=== PATIENT | female | born 1955 | race Caucasian/White ===

== ENCOUNTER 2018-01-30 07:04 | Day surgery (SDC) | payer OTHER ==
[~2018-01-30 07:04] MED LIST: Acetaminophen TAB* 325 MG PO PRN; Buffered Lidocaine 0.9% SYRIN* 5 ML/SYR SYRINGE INTRADERM ONE
[2018-01-30] MEDS ORDERED: acetaZOLAMIDE TAB* 250 MG ONE (08:01)
[2018-01-30] MEDS ORDERED: Phenylephrine 2.5% OPTH.SOL* 2 ML BTL ONE (08:02)
[2018-01-30] MEDS ORDERED: Lidocaine 2% EPI 1:200000 MPF*10-20 ML VIAL ONE (08:02)
[2018-01-30] MEDS ORDERED: Cyclopentolate 1% OPTH.SOL* 2 ML BTL ONE (08:02)
[2018-01-30] MEDS ORDERED: Lidocaine 1% MPF* 2 ML VIAL ONE (08:02)
[2018-01-30] MEDS ORDERED: Proparacaine 0.5% OPHTH.SOL* 15 ML BTL ONE (08:02)
[2018-01-30] MEDS ORDERED: Neomycin/Polymy/Dex OPTH.SUSP* MAXITROL 0.1% 5 ML ONE (08:02)
[2018-01-30] MEDS ORDERED: Ketorolac 0.5% OPHTH (NF) 0.5 % 5 ML BTL ONE (08:02)
[2018-01-30] MEDS ORDERED: Povidone Iodine 5% OPTH* 30 ML BTL ONE (08:02)
[2018-01-30] MEDS ORDERED: fentaNYL* 50 MCG/ML 2 ML VIAL (100 MCG VIAL) ONE (08:13)
[2018-01-30] MEDS ORDERED: Midazolam* 1 MG/ML 2 ML VIAL (2 MG) ONE ×3 (08:13→09:04)
[2018-01-30 09:18] VITALS: BP 111/87
--- NOTE | 2018-01-30 11:25 | OP ---
OPERATIVE NOTE: DATE OF OPERATION: 01/30/18 - [facility] DATE OF : 53 SURGEON: Panfilo Mccann M.D. PREOPERATIVE DIAGNOSIS: Cataract, left eye. POSTOPERATIVE DIAGNOSIS: Cataract, left eye. OPERATIVE PROCEDURE: Extracapsular cataract extraction with IOL implant left eye. PROCEDURE: The patient was brought to the operating room after being given 1/2 % Alcaine with epinephrine drops in the preoperative area. The eye was prepped and draped in the usual sterile fashion. Sterile drape and eyelid speculum were placed. Again, topical 1/2% Alcaine with epinephrine was given. A paracentesis incision was made at the 3 o'clock position with the No.75 blade. Clear cornea incision 2.2 x 2.2-mm was created at the 6 o'clock position starting at the anterior limbus using the 2.2-mm keratome. The anterior chamber was irrigated with 0.4 mL of 1% non-preservative intracameral lidocaine and filled with DisCoVisc. A capsulorrhexis was completed using the cystotome and the Utrata forceps. Hydrodissection was performed with balanced salt solution. The lens nucleus was removed with the Phacoemulsification handpiece without incident. Cortex was removed with the irrigation-aspiration handpiece. The capsular bag was re-inflated using DisCoVisc and an [id number] 22.0 implant was inserted with the shooter. The irrigation-aspiration handpiece was used to remove all residual DisCoVisc. The eye was refilled with balanced salt solution and the wound checked and found to be watertight. Topical Maxitrol drops were given. [id number]/[facility] #: [id number] [facility] CENTERAlyson
== END 2018-01-30 09:25 | disposition home or self-care (01) ==
LOC: OREAST 07:04
PROVIDERS: ATTEND Specialist
DX: H25.812 Combined forms of age-related cataract, left eye (principal); A69.23 Arthritis due to Lyme disease; K58.9 Irritable bowel syndrome, unspecified; F32.9 Major depressive disorder, single episode, unspecified
CPT/HCPCS: A9270-GY; J2250; J3010; V2632

== ENCOUNTER 2018-02-06 08:10 | Day surgery (SDC) | payer OTHER ==
[2018-02-06] MEDS ORDERED: Proparacaine 0.5% OPHTH.SOL* 15 ML BTL ONE (09:08)
[2018-02-06] MEDS ORDERED: Lidocaine 1% MPF* 2 ML VIAL ONE (09:08)
[2018-02-06] MEDS ORDERED: Povidone Iodine 5% OPTH* 30 ML BTL ONE (09:08)
[2018-02-06] MEDS ORDERED: Cyclopentolate 1% OPTH.SOL* 2 ML BTL ONE (09:08)
[2018-02-06] MEDS ORDERED: Lidocaine 2% EPI 1:200000 MPF*10-20 ML VIAL ONE (09:08)
[2018-02-06] MEDS ORDERED: Ketorolac 0.5% OPHTH (NF) 0.5 % 5 ML BTL ONE (09:08)
[2018-02-06] MEDS ORDERED: Phenylephrine 2.5% OPTH.SOL* 2 ML BTL ONE (09:08)
[2018-02-06] MEDS ORDERED: Neomycin/Polymy/Dex OPTH.SUSP* MAXITROL 0.1% 5 ML ONE (09:08)
[2018-02-06] MEDS ORDERED: acetaZOLAMIDE TAB* 250 MG ONE (09:08)
[2018-02-06] MEDS ORDERED: Midazolam* 1 MG/ML 2 ML VIAL (2 MG) ONE (10:26)
--- NOTE | 2018-02-06 11:26 | OP ---
DATE OF OPERATION: 02/06/2018. DATE OF : 1955. SURGEON: Panfilo Mccann M.D. PREOPERATIVE DIAGNOSIS: Cataract right eye. POSTOPERATIVE DIAGNOSIS: Cataract right eye. OPERATIVE PROCEDURE: Extracapsular cataract extraction with intraocular lens implant right eye. PROCEDURE: The patient was brought to the operating room after being given 1/2% Alcaine with epineph rine drops in the preoperative area. The eye was prepped and draped in the usual sterile fashion. S terile drape and eyelid speculum were placed. Again, topical 1/2% Alcaine with epinephrine was given . A paracentesis incision was made at the 9 o'clock position with the No.75 blade. Clear cornea inc ision 2.2 x 2.2-mm was created at the 12 o'clock position starting at the anterior limbus using the 2 .2-mm keratome. The anterior chamber was irrigated with 0.4 mL of 1% non-preservative intracameral l idocaine and filled with DisCoVisc. A capsulorrhexis was completed using the cystotome and the Utrat a forceps. Hydrodissection was performed with balanced salt solution. The lens nucleus was removed w ith the Phacoemulsification handpiece without incident. Cortex was removed with the irrigation-aspir ation handpiece. The capsular bag was re-inflated using DisCoVisc and an [id number] 22 implant was inser brenda with the shooter. The irrigation-aspiration handpiece was used to remove all residual DisCoVisc. The eye was refilled with balanced salt solution and the wound checked and found to be watertight. Topical Maxitrol drops were given. [id number]/[facility] #: [id number]
[2018-02-06 11:32] VITALS: BP 121/80
== END 2018-02-06 11:20 | disposition home or self-care (01) ==
LOC: OREAST 08:10
PROVIDERS: ATTEND Specialist
DX: H25.811 Combined forms of age-related cataract, right eye (principal); A69.20 Lyme disease, unspecified
CPT/HCPCS: A9270-GY; J2250; V2632

== ENCOUNTER 2019-11-02 12:37 | Emergency (ER) | payer MEDICARE, OTHER ==
--- OUTSIDE RECORDS SUMMARY | 2019-11-02 12:43 | XMS REPORT ---
:1955 Author Organization [facility] Care Team Providers Name Role Phone Unavailable Unavailable Unavailable Problems Condition Condition Condition Status Onset Resolution Last Treating Comments Name Details Category Date Date Treatment Clinician Date Aftercare Aftercare Diagnosis Active 2018-10 Fabian following following 11-16 Katt joint joint [id number] replacement replacement surgery surgery Presence of Presence of Diagnosis Active 2018-10 Fabian right right 2- Katt artificial artificial [id number] knee joint knee joint Major Major Diagnosis Active 2018-10 Fabian depressive depressive 2- Katt disorder, disorder, [id number] single single episode, episode, unspecified unspecified Obstructive Obstructive Diagnosis Active 2018-10 Fabian sleep apnea sleep apnea 2- Katt (adult) (adult) [id number] (pediatric) (pediatric) Unspecified Unspecified Diagnosis Active 2018-10 Faiban osteoarthri osteoarthri 2- Katt tis, tis, [id number] unspecified unspecified site site Gastro-esop Gastro-esop Diagnosis Active 2018-10 Fabian hageal hageal 2- Katt reflux reflux [id number] disease disease without without esophagitis esophagitis Lyme Lyme Diagnosis Active Fabian disease, disease, Kobziewicz unspecified unspecified [id number] Other Other Diagnosis Active Fabian specified specified Katt behavioral behavioral [id number] and and emotional emotional disorders disorders with onset with onset usually usually occurring occurring in in childhood childhood and and adolescence adolescence Calculus of Calculus of Diagnosis Active Fabian gallbladder gallbladder Kobziewicz without without [id number] cholecystit cholecystit is without is without obstruction obstruction 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) (current) Katt use of use of [id number] aspirin aspirin Pain frequent Pain Mgmt Active 2018-10 Shadia pain 11-16 Paloma 10:25: [id number] 00 Respiratory dyspnea Respirator Active 2018-10 Shadia present y 11-16 [place] 10:25: [id number] 00 Respiratory CPAP Respirator Active 2018-10 Shadia treatments y 11-16 Paloma in home 10:25: [id number] 00 Endo/Earl anti-coagul Endo/Earl Active 2018-10 Shadia ation 11-16 Paloma therapy 10:25: [id number] 00 Integument surgical Integument Active 2018-10 Shadia wound 11-16 Paloma present 10:25: [id number] 00 Integument skin Integument Active 2018-10 Shadia integrity 11-16 Paloma risk 10:25: [id number] 00 Nutrition nutritional Nutrition Active 2018-10 Shadia restriction 11-16 Paloma s 10:25: [id number] 00 Elimination urinary Eliminatio Active 2018-10 Shadia incontinenc n 11-16 Paloma e 10:25: [id number] 00 Neuro confusion Neuro/Emot Active 2018-10 Shadia present ion 11-16 [place]oma 10:25: [id number] 00 Activity ADL Activity Active 2018-10 Shadia assistance 11-16 [place] required 10:25: [id number] 00 Activity self-care Activity Active 2018-10 Shadia deficit 11-16 [place] 10:25: [id number] 00 Safety structural Safety Active 2018-10 Shadia barriers 11-16 Paloma present 10:25: [id number] 00 Safety fall risk Safety Active 2018-10 Shadia factor 11-16 Paloma present 10:25: [id number] 00 Safety risk for Safety Active 2018-10 Shadia hospitaliza 11-16 Paloma tion 10:25: [id number] 00 Medication oral med Meds Active 2018-10 Shadia assistance 11-16 [place]oma required 10:25: [id number] 00 Medication knowledge/s Meds Active 2018-10 Shadia kill 11-16 Paloma deficit: pt 10:25: [id number] 00 Musculoskel transfer Musculoske Active 2018-10 Shadia etal assistance letal 11-16 Paloma required 10:25: [id number] 00 Musculoskel requires Musculoske Active 2018-10 Shadia etal human letal 11-16 [place]oma assist to 10:25: [id number] leave home 00 Safety can be left Safety Active 2018-10 Fabian alone for 11-16 Katt only short 11:45: [id number] periods 00 ROM ROM PT: ROM Active 2018-10 Fabian deficit: LE 11-16 Kobziewicz 11:45: [id number] 00 ROM knowledge/s PT: ROM Active 2018-10 Fabian kill 11-16 Kobziewicz deficit LE: 11:45: [id number] pt 00 Strength/To knowledge/s PT: Active 2018-10 Fabian ne/Motor kill Strength 11-16 Kobziewicz Control deficit LE: 11:45: [id number] pt 00 Bed mobility/tr PT/OT: Bed Active 2018-10 Fabian Mobility/Tr ansfer Mobility/T 11-16 Kobziewicz ansfer device ransfer 11:45: [id number] present 00 Bed transfer PT/OT: Bed Active 2018-10 Fabian Mobility/Tr deficit: Mobility/T 11-16 Kobziewicz ansfer vehicle ransfer 11:45: [id number] 00 Bed knowledge/s PT/OT: Bed Active 2018-10 Fabian Mobility/Tr kill Mobility/T 11-16 Kobziewicz ansfer deficit: pt ransfer 11:45: [id number] 00 Balance/End 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/legal 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 PT/OT: Active 2018-10 Fabian urance rdination Balance/En 11-16 Kobziewicz deficit durance 11:45: [id number] 00 OT: Self self-care OT: Active 2018-10 Fabian Care deficit Self-Care 11-16 Kobziewicz 11:45: [id number] 00 OT: Self knowledge/s OT: Active 2018-10 Fabian Care kill Self-Care 11-16 Kobziewicz deficit: pt 11:45: [id number] 00 Gait/Locomo stair PT/OT: Active 2018-10 Fabian tion management Gait/Locom 11-16 Kobziewicz problems req otion 11:45: [id number] 00 Gait/Locomo gait PT/OT: Active 2018-10 Fabian tion assistive Gait/Locom 11-16 Kobziewicz problems device otion 11:45: [id number] present 00 Gait/Locomo knowledge/s PT/OT: Active 2018-10 Fabian tion kill Gait/Locom 11-16 Kobziewicz problems deficit: pt otion 11:45: [id number] 00 Gait/Locomo gait PT/OT: Active 2018-10 Fabian tion deficit Gait/Locom 11-16 Kobziewicz problems otion 11:45: [id number] 00 Allergies, Adverse Reactions, Alerts Allergy Name Allergy Status Severity Reaction(s) Onset Inactive Treating Comments Type Date Date Clinician hydrocodone Base Active Unknown Reaction Tasneem Beam Ingredient Unknown 06-13 Dilaudid Medication Active Unknown Reaction Tasneem Beam Name ID Unknown 06-13 egg Base Active Unknown Reaction Tasneem Beam Ingredient Unknown 06-13 gluten Base Active Unknown Reaction Tasneem Beam Ingredient Unknown 06-13 milk Base Active Unknown Reaction Tasneem Beam Ingredient Unknown 06-13 Medications Ordered Filled Start Stop Current Ordering Indication Dosage Frequency Signature Comments Components Medication Medication Date Date Medication? Clinician (SIG) Name Name Aspirin Low Aspirin Low 2018-10 Yes Ginnetti Unknown Unknown Dose 81 mg Dose 81 mg 11-16 Jose GIVENS tablet,araceli tablet,araceli yed release yed release senna 8.6 senna 8.6 2018-10 Yes Ginnetti Unknown Unknown mg tablet mg tablet 11-16 Jose GIVENS Tylenol Tylenol 2018-10 Yes Ginnetti Unknown Unknown Extra Extra 2 Jose GIVENS Strength Strength 500 mg 500 mg tablet tablet docusate docusate 2018-10 Yes Ginnetti Unknown Unknown sodium 100 sodium 100 2 Jose GIVENS mg capsule mg capsule oxyCODONE 5 oxyCODONE 5 2018-10 Yes Ginnetti Unknown Unknown mg tablet mg tablet 11-16 Jose GIVENS morphine 15 morphine 15 2018-10 Yes Ginnetti Unknown Unknown mg tablet, mg tablet, 11-16 Jose GIVENS crush crush resistant, resistant, extended extended release release meloxicam meloxicam 2018-10- Yes Ginnetti Unknown Unknown 7.5 mg 7.5 mg 11-16 Jose GIVENS tablet tablet gabapentin gabapentin 2018-10- Yes Ginnetti Unknown Unknown 300 mg 300 mg 11-16 Jose GIVENS capsule capsule Vital Signs Vital Name Observation Time Observation Value Comments SYSTOLIC mm[Hg] 2019-09-22 18:09:23 110 mm[Hg] mm[Hg] Method: Sit SYSTOLIC mm[Hg] 2019-09-15 18:09:16 102 mm[Hg] mm[Hg] Method: Stand DIASTOLIC mm[Hg] 2019-09-22 18:09:23 60 mm[Hg] mm[Hg] Method: Sit DIASTOLIC mm[Hg] 2019-09-15 18:09:16 64 mm[Hg] mm[Hg] Method: Stand PULSE 2019-09-22 18:09:23 86 /min /min RESP RATE 2019-09-15 18:09:16 14 /min /min TEMP 2019-09-15 18:09:16 98.7 [degF] Procedures This patient has no known procedures. Results This patient has no known results.
--- OUTSIDE RECORDS SUMMARY | 2019-11-02 12:43 | XMS REPORT ---
:1955 Author Organization [facility] Care Team Providers Name Role Phone Unavailable Unavailable Unavailable Problems Condition Condition Condition Status Onset Resolution Last Treating Comments Name Details Category Date Date Treatment Clinician Date Aftercare Aftercare Diagnosis Active 2018-10 Fabian following following 11-16 Katt joint joint [id number] replacement replacement surgery surgery Presence of Presence of Diagnosis Active 2018-10 Fabian right right 2- Katt artificial artificial [id number] knee joint knee joint Major Major Diagnosis Active 2018-10 Fabian depressive depressive 2- Katt disorder, disorder, [id number] single single episode, episode, unspecified unspecified Obstructive Obstructive Diagnosis Active 2018-10 Fabian sleep apnea sleep apnea 2-05 Katt (adult) (adult) [id number] (pediatric) (pediatric) Unspecified Unspecified Diagnosis Active 2018-10 Fabian osteoarthri osteoarthri 2-05 Katt tis, tis, [id number] unspecified unspecified site site Gastro-esop Gastro-esop Diagnosis Active 2018-10 Fabian hageal hageal 2-05 Katt reflux reflux [id number] disease disease without without esophagitis esophagitis Lyme Lyme Diagnosis Active Fabian disease, disease, Yoditziewicz unspecified unspecified [id number] Other Other Diagnosis Active Fabian specified specified Katt behavioral behavioral [id number] and and emotional emotional disorders disorders with onset with onset usually usually occurring occurring in in childhood childhood and and adolescence adolescence Calculus of Calculus of Diagnosis Active Fabian gallbladder gallbladder Kobziewicz without without [id number] cholecystit cholecystit is without is without obstruction obstruction 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) (current) Katt use of use of [id number] aspirin aspirin Pain frequent Pain Mgmt Resolve 2018-102019-10-06 Shadai pain d 11-16 11:15:00 Rosa M 10:25: [id number] 00 Respiratory dyspnea Respirator Resolve 2018-102019-10-06 Shadia present y d 11-16 11:15:00 Rosa M 10:25: [id number] 00 Respiratory CPAP Respirator Resolve 2018-102019-10-06 Shadia treatments y d 11-16 11:15:00 Rosa M in home 10:25: [id number] 00 Endo/Earl anti-coagul Endo/Earl Resolve 2018-102019-10-06 Shadia ation d 11-16 11:15:00 [place] therapy 10:25: [id number] 00 Integument surgical Integument Resolve 2018-102019-10-06 Shadia wound d 11-16 11:15:00 [place] present 10:25: [id number] 00 Integument skin Integument Resolve 2018-102019-10-06 Shadia integrity d 11-16 11:15:00 Rosa M risk 10:25: [id number] 00 Nutrition nutritional Nutrition Resolve 2018-102019-10-06 Shadia restriction d 11-16 11:15:00 Rosa M s 10:25: [id number] 00 Elimination urinary Eliminatio Resolve 2018-102019-10-06 Shadia incontinenc n d 11-16 11:15:00 [place] e 10:25: [id number] 00 Neuro confusion Neuro/Emot Resolve 2018-102019-10-06 Shadia present ion d 11-16 11:15:00 [place] 10:25: [id number] 00 Activity ADL Activity Resolve 2018-102019-10-06 Shadia assistance d 11-16 11:15:00 [place] required 10:25: [id number] 00 Activity self-care Activity Resolve 2018-102019-10-06 Shadia deficit d 11-16 11:15:00 [place] 10:25: [id number] 00 Safety structural Safety Resolve 2018-102019-10-06 Shadia barriers d 11-16 11:15:00 [place] present 10:25: [id number] 00 Safety fall risk Safety Resolve 2018-102019-10-06 Shadia factor d 11-16 11:15:00 Rosa M present 10:25: [id number] 00 Safety risk for Safety Resolve 2018-102019-10-06 Shadia hospitaliza d 11-16 11:15:00 [place] tion 10:25: [id number] 00 Medication oral med Meds Resolve 2018-102019-10-06 Shadia assistance d 11-16 11:15:00 [place] required 10:25: [id number] 00 Medication knowledge/s Meds Resolve 2018-102019-10-06 Shadia kill d 11-16 11:15:00 Rosa M deficit: pt 10:25: [id number] 00 Musculoskel transfer Musculoske Resolve 2018-102019-10-06 Shadia etal assistance letal d 11-16 11:15:00 [place] required 10:25: [id number] 00 Musculoskel requires Musculoske Resolve 2018-102019-10-06 Shadia etal human letal d 11-16 11:15:00 [place] assist to 10:25: [id number] leave home 00 Safety can be left Safety Resolve 2018-102019-10-06 Fabian alone for d 11-16 11:15:00 Katt clark short 11:45: [id number] periods 00 ROM ROM PT: ROM Resolve 2018-102019-10-06 Fabian deficit: LE d 11-16 11:15:00 Katt 11:45: [id number] 00 ROM knowledge/s PT: ROM Resolve 2018-102019-10-06 Fabian kill d 11-16 11:15:00 Katt deficit LE: 11:45: [id number] pt 00 Strength/To knowledge/s PT: Resolve 2018-102019-10-06 Fabian ne/Motor kill Strength d 11-16 11:15:00 Katt Control deficit LE: 11:45: [id number] pt 00 Bed mobility/tr PT/OT: Bed Resolve 2018-102019-10-06 Fabian Mobility/Tr ansfer Mobility/T d 11-16 11:15:00 Katt davis device ransfer 11:45: [id number] present 00 Bed transfer PT/OT: Bed Resolve 2018-102019-10-06 Fabian Mobility/Tr deficit: Mobility/T d 11-16 11:15:00 Katt davis vehicle ransfer 11:45: [id number] 00 Bed knowledge/s PT/OT: Bed Resolve 2018-102019-10-06 Fabian Mobility/Tr kill Mobility/T d 11-16 11:15:00 Katt davis deficit: pt ransfer 11:45: [id number] 00 Balance/End balance/patient placement coordinator PT/OT: Resolve 2018-102019-10-06 Fabian eliance rdination Balance/En d 11-16 11:15:00 Kobziewicz deficit durance 11:45: [id number] 00 OT: Self self-care OT: Resolve 2018-102019-10-06 Fabian Care deficit Self-Care d 11-16 11:15:00 Kobziewicz 11:45: [id number] 00 OT: Self knowledge/s OT: Resolve 2018-102019-10-06 Fabian Care kill Self-Care d 11-16 11:15:00 Kobziewicz deficit: pt 11:45: [id number] 00 Gait/Locomo stair PT/OT: Resolve 2018-102019-10-06 Fabian tion management Gait/Locom d 11-16 11:15:00 Kobziewicz problems req otion 11:45: [id number] 00 Gait/Locomo gait PT/OT: Resolve 2018-102019-10-06 Fabian tion assistive Gait/Locom d 11-16 11:15:00 Kobziewicz problems device otion 11:45: [id number] present 00 Gait/Locomo knowledge/s PT/OT: Resolve 2018-102019-10-06 Fabian tion kill Gait/Locom d 11-16 11:15:00 Kobziewicz problems deficit: pt otion 11:45: [id number] 00 Gait/Locomo gait PT/OT: Resolve 2018-102019-10-06 Fabian tion deficit Gait/Locom d 11-16 11:15:00 Kobziewicz problems otion 11:45: [id number] 00 Allergies, Adverse Reactions, Alerts Allergy Name [...] (SIG) Name Name Aspirin Low Aspirin Low 2018-10- Yes Serg Unknown Unknown Dose 81 mg Dose 81 mg 11-16 Jose GIVENS tablet,araceli tablet,araceli yed release yed release senna 8.6 senna 8.6 2018-10- Yes Serg Unknown Unknown mg tablet mg tablet 11-16 Jose GIVENS Tylenol Tylenol 2018-10- Yes Serg Unknown Unknown Extra Extra 11-16 Jose GIVENS Strength Strength 500 mg 500 mg tablet tablet docusate docusate 2018-10- Yes Serg Unknown Unknown sodium 100 sodium 100 11-16 Jose GIVENS mg capsule mg capsule oxyCODONE 5 oxyCODONE 5 2018-10- Yes Marnilesviamadeline Unknown Unknown mg tablet mg tablet 11-16 Jose GIVENS morphine 15 morphine 15 2018-10- Yes Serg Unknown Unknown mg tablet, mg tablet, 11-16 Jose GIVENS crush crush resistant, resistant, extended extended release release meloxicam meloxicam 2018-10- Yes Serg Unknown Unknown 7.5 mg 7.5 mg 11-16 Jose GIVENS tablet tablet gabapentin gabapentin 2018-10- Yes Serg Unknown Unknown 300 mg 300 mg 11-16 Jose GIVENS capsule capsule Vital Signs Vital Name Observation Time Observation Value Comments SYSTOLIC mm[Hg] 2019-10-06 18:09:37 110 mm[Hg] mm[Hg] Method: Sit SYSTOLIC mm[Hg] 2019-09-15 18:09:16 102 mm[Hg] mm[Hg] Method: Stand DIASTOLIC mm[Hg] 2019-10-06 18:09:37 62 mm[Hg] mm[Hg] Method: Sit DIASTOLIC mm[Hg] 2019-09-15 18:09:16 64 mm[Hg] mm[Hg] Method: Stand PULSE 2019-10-06 18:09:37 88 /min /min RESP RATE 2019-10-06 18:09:37 15 /min /min TEMP 2019-10-06 18:09:37 98.7 [degF] Procedures This patient has no known procedures. Results This patient has no known results.
--- OUTSIDE RECORDS SUMMARY | 2019-11-02 12:43 | XMS REPORT ---
:1955 Author Organization [facility] Care Team Providers Name Role Phone Unavailable Unavailable Unavailable Problems Condition Condition Condition Status Onset Resolution Last Treating Comments Name Details Category Date Date Treatment Clinician Date Aftercare Aftercare Diagnosis Active 2018-10 Fabian following following 11-16 Katt joint joint [id number] replacement replacement surgery surgery Presence of Presence of Diagnosis Active 2018-10 Fabian right right 2- Katt artificial artificial [id number] knee joint knee joint Major Major Diagnosis Active 2018-10 Fabian depressive depressive 2- Katt disorder, disorder, [id number] single single episode, episode, unspecified unspecified Obstructive Obstructive Diagnosis Active 2018-10 Fabian sleep apnea sleep apnea 2- Katt (adult) (adult) [id number] (pediatric) (pediatric) Unspecified Unspecified Diagnosis Active 2018-10 Fabian osteoarthri osteoarthri 2- Katt tis, tis, [id number] unspecified unspecified site site Gastro-esop Gastro-esop Diagnosis Active 2018-10 Fabian hageal hageal 2- Katt reflux reflux [id number] disease disease without without esophagitis esophagitis Lyme Lyme Diagnosis Active Fabian disease, disease, Kobziewicz unspecified unspecified [id number] Other Other Diagnosis Active Fabian specified specified Katt behavioral behavioral [id number] and and emotional emotional disorders disorders with onset with onset usually usually occurring occurring in in childhood childhood and and adolescence adolescence Calculus of Calculus of Diagnosis Active Fabian gallbladder gallbladder Kobziewicz without without [id number] cholecystit cholecystit is without is without obstruction obstruction 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 Diagnosis Active Fabian (current) (current) Katt use of use of [id number] aspirin aspirin Pain frequent Pain Mgmt Active 2018-10 Shadia pain 11-16 [place] 10:25: [id number] 00 Respiratory dyspnea Respirator Active 2018-10 Shadia present y 11-16 [place] 10:25: [id number] 00 Respiratory CPAP Respirator Active 2018-10 Shadia treatments y 11-16 [place] in home 10:25: [id number] 00 Endo/Earl anti-coagul Endo/Earl Active 2018-10 Shadia ation 11-16 [place] therapy 10:25: [id number] 00 Integument surgical Integument Active 2018-10 Shadia wound 11-16 [place] present 10:25: [id number] 00 Integument skin Integument Active 2018-10 Shadia integrity 11-16 [place] risk 10:25: [id number] 00 Nutrition nutritional Nutrition Active 2018-10 Shadia restriction 11-16 [place] s 10:25: [id number] 00 Elimination urinary Eliminatio Active 2018-10 Shadia incontinenc n 11-16 [place] e 10:25: [id number] 00 Neuro confusion Neuro/Emot Active 2018-10 Shadia present ion 11-16 [place] 10:25: [id number] 00 Activity ADL Activity Active 2018-10 Shadia assistance 11-16 [place] required 10:25: [id number] 00 Activity self-care Activity Active 2018-10 Shadia deficit 11-16 [place] 10:25: [id number] 00 Safety structural Safety Active 2018-10 Shadia barriers 11-16 [place] present 10:25: [id number] 00 Safety fall risk Safety Active 2018-10 Shadia factor 11-16 [place] present 10:25: [id number] 00 Safety risk for Safety Active 2018-10 Shadia hospitaliza 11-16 [place] tion 10:25: [id number] 00 Medication oral med Meds Active 2018-10 Shadia assistance 11-16 [place] required 10:25: [id number] 00 Medication knowledge/s Meds Active 2018-10 Shadia kill 11-16 [place] deficit: pt 10:25: [id number] 00 Musculoskel transfer Musculoske Active 2018-10 Shadia etal assistance letal 11-16 [place] required 10:25: [id number] 00 Musculoskel requires Musculoske Active 2018-10 Shadia etal human letal 11-16 [place] assist to 10:25: [id number] leave home 00 Safety can be left Safety Active 2018-10 Fabian alone for 11-16 [place] only short 11:45: [id number] periods 00 ROM ROM PT: ROM Active 2018-10 Fabian deficit: LE 11-16 [place] 11:45: [id number] 00 ROM knowledge/s PT: ROM Active 2018-10 Fabian kill 11-16 [place] deficit LE: 11:45: [id number] pt 00 Strength/To knowledge/s PT: Active 2018-10 Fabian ne/Motor kill Strength 11-16 [place] Control deficit LE: 11:45: [id number] pt 00 Bed mobility/tr PT/OT: Bed Active 2018-10 Fabian Mobility/Tr ansfer Mobility/T 11-16 [place] ansfer device ransfer 11:45: [id number] present 00 Bed transfer PT/OT: Bed Active 2018-10 Fabian Mobility/Tr deficit: Mobility/T 11-16 [place] ansfer vehicle ransfer 11:45: [id number] 00 Bed knowledge/s PT/OT: Bed Active 2018-10 Fabian Mobility/Tr kill Mobility/T 11-16 [place] ansfer deficit: pt ransfer 11:45: [id number] 00 Balance/End balance/orthodontic treatment coordinator PT/OT: Active 2018-10 Fabian urance rdination Balance/En 11-16 [place] deficit durance 11:45: [id number] 00 OT: Self self-care OT: Active 2018-10 Fabian Care deficit Self-Care 11-16 [place] 11:45: [id number] 00 OT: Self knowledge/s OT: Active 2018-10 Fabian Care kill Self-Care 11-16 [place] deficit: pt 11:45: [id number] 00 Gait/Locomo stair PT/OT: Active 2018-10 Fabian tion management Gait/Locom 11-16 [place] problems req otion 11:45: [id number] 00 Gait/Locomo gait PT/OT: Active 2018-10 Fabian tion assistive Gait/Locom 11-16 [place] problems device otion 11:45: [id number] present 00 Gait/Locomo knowledge/s PT/OT: Active 2018-10 Fabian tion kill Gait/Locom 11-16 [place] problems deficit: pt otion 11:45: [id number] 00 Gait/Locomo gait PT/OT: Active 2018-10 Fabian tion deficit Gait/Locom 11-16 [place] problems otion 11:45: [id number] 00 Allergies, Adverse Reactions, Alerts Allergy Name [...] Observation Time Observation Value Comments SYSTOLIC mm[Hg] 2019-10-03 18:09:34 110 mm[Hg] mm[Hg] Method: Sit SYSTOLIC mm[Hg] 2019-09-15 18:09:16 102 mm[Hg] mm[Hg] Method: Stand DIASTOLIC mm[Hg] 2019-10-03 18:09:34 60 mm[Hg] mm[Hg] Method: Sit DIASTOLIC mm[Hg] 2019-09-15 18:09:16 64 mm[Hg] mm[Hg] Method: Stand PULSE 2019-10-03 18:09:34 86 /min /min RESP RATE 2019-09-15 18:09:16 14 /min /min TEMP 2019-09-15 18:09:16 98.7 [degF] Procedures This patient has no known procedures. Results This patient has no known results.
--- OUTSIDE RECORDS SUMMARY | 2019-11-02 12:43 | XMS REPORT ---
:1955 Author Organization [facility] Care Team Providers Name Role Phone Unavailable Unavailable Unavailable Problems Condition Condition Condition Status Onset Resolution Last Treating Comments Name Details Category Date Date Treatment Clinician Date Aftercare Aftercare Diagnosis Active 2018-10 Fabian following following 11-16 Katt joint joint [id number] replacement replacement surgery surgery Presence of Presence of Diagnosis Active 2018-10 Fabian right right 2- Katt artificial artificial [id number] knee joint knee joint Major Major Diagnosis Active 2018-10 Fabian depressive depressive 2- Katt disorder, disorder, [id number] single single episode, episode, unspecified unspecified Obstructive Obstructive Diagnosis Active 2018-10 Fabian sleep apnea sleep apnea 2- Katt (adult) (adult) [id number] (pediatric) (pediatric) Unspecified Unspecified Diagnosis Active 2018-10 Fabian osteoarthri osteoarthri 2- Katt tis, tis, [id number] unspecified unspecified site site Gastro-esop Gastro-esop Diagnosis Active 2018-10 Fabian hageal hageal 2- Katt reflux reflux [id number] disease disease without without esophagitis esophagitis Lyme Lyme Diagnosis Active Fabian disease, disease, Kobziewicz unspecified unspecified [id number] Other Other Diagnosis Active Fabian specified specified Katt behavioral behavioral [id number] and and emotional emotional disorders disorders with onset with onset usually usually occurring occurring in in childhood childhood and and adolescence adolescence Calculus of Calculus of Diagnosis Active Fabian gallbladder gallbladder Kobziewicz without without [id number] cholecystit cholecystit is without is without obstruction obstruction 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 Fabian (current) (current) Katt use of use of [id number] aspirin aspirin Pain frequent Pain Mgmt Active 2018-10 Shadia pain 11-16 [place] 10:25: [id number] 00 Respiratory dyspnea Respirator Active 2018-10 Shadia present y 11-16 [place] 10:25: [id number] 00 Respiratory CPAP Respirator Active 2018-10 Shadia treatments y 11-16 [place] in home 10:25: [id number] 00 Endo/Earl anti-coagul Endo/Earl Active 2018-10 Shadia ation 11-16 [place] therapy 10:25: [id number] 00 Integument surgical Integument Active 2018-10 Shadia wound 11-16 [place] present 10:25: [id number] 00 Integument skin Integument Active 2018-10 Shadia integrity 11-16 [place] risk 10:25: [id number] 00 Nutrition nutritional Nutrition Active 2018-10 Shadia restriction 11-16 [place] s 10:25: [id number] 00 Elimination urinary Eliminatio Active 2018-10 Shadia incontinenc n 11-16 [place] e 10:25: [id number] 00 Neuro confusion Neuro/Emot Active 2018-10 Shadia present ion 11-16 [place] 10:25: [id number] 00 Activity ADL Activity Active 2018-10 Shadia assistance 11-16 [place] required 10:25: [id number] 00 Activity self-care Activity Active 2018-10 Shadia deficit 11-16 [place] 10:25: [id number] 00 Safety structural Safety Active 2018-10 Shadia barriers 11-16 [place] present 10:25: [id number] 00 Safety fall risk Safety Active 2018-10 Shadia factor 11-16 [place] present 10:25: [id number] 00 Safety risk for Safety Active 2018-10 Shadia hospitaliza 11-16 [place] tion 10:25: [id number] 00 Medication oral med Meds Active 2018-10 Shadia assistance 11-16 [place] required 10:25: [id number] 00 Medication knowledge/s Meds Active 2018-10 Shadia kill 11-16 [place] deficit: pt 10:25: [id number] 00 Musculoskel transfer Musculoske Active 2018-10 Shadia etal assistance letal 11-16 [place] required 10:25: [id number] 00 Musculoskel requires Musculoske Active 2018-10 Shadia etal human letal 11-16 [place] assist to 10:25: [id number] leave home 00 Safety can be left Safety Active 2018-10 Fabian alone for 11-16 [place] only short 11:45: [id number] periods 00 ROM ROM PT: ROM Active 2018-10 Fabian deficit: LE 11-16 [place] 11:45: [id number] 00 ROM knowledge/s PT: ROM Active 2018-10 Fabian kill 11-16 [place] deficit LE: 11:45: [id number] pt 00 Strength/To knowledge/s PT: Active 2018-10 Fabian ne/Motor kill Strength 11-16 [place] Control deficit LE: 11:45: [id number] pt 00 Bed mobility/tr PT/OT: Bed Active 2018-10 Fabian Mobility/Tr ansfer Mobility/T 11-16 [place] ansfer device ransfer 11:45: [id number] present 00 Bed transfer PT/OT: Bed Active 2018-10 Fabian Mobility/Tr deficit: Mobility/T 11-16 [place] ansfer vehicle ransfer 11:45: [id number] 00 Bed knowledge/s PT/OT: Bed Active 2018-10 Fabian Mobility/Tr kill Mobility/T 11-16 [place] ansfer deficit: pt ransfer 11:45: [id number] 00 Balance/End balance/bereavement program coordinator PT/OT: Active 2018-10 Fabian urance rdination Balance/En 11-16 [place] deficit durance 11:45: [id number] 00 OT: Self self-care OT: Active 2018-10 Fabian Care deficit Self-Care 11-16 [place] 11:45: [id number] 00 OT: Self knowledge/s OT: Active 2018-10 Fabian Care kill Self-Care 11-16 [place] deficit: pt 11:45: [id number] 00 Gait/Locomo stair PT/OT: Active 2018-10 Fabian tion management Gait/Locom 11-16 [place] problems req otion 11:45: [id number] 00 Gait/Locomo gait PT/OT: Active 2018-10 Fabian tion assistive Gait/Locom 11-16 [place] problems device otion 11:45: [id number] present 00 Gait/Locomo knowledge/s PT/OT: Active 2018-10 Fabian tion kill Gait/Locom 11-16 [place] problems deficit: pt otion 11:45: [id number] 00 Gait/Locomo gait PT/OT: Active 2018-10 Fabian tion deficit Gait/Locom 11-16 [place] problems otion 11:45: [id number] 00 Allergies, Adverse Reactions, Alerts Allergy Name [...] Observation Time Observation Value Comments SYSTOLIC mm[Hg] 2019-09-24 18:09:25 110 mm[Hg] mm[Hg] Method: Sit SYSTOLIC mm[Hg] 2019-09-15 18:09:16 102 mm[Hg] mm[Hg] Method: Stand DIASTOLIC mm[Hg] 2019-09-24 18:09:25 62 mm[Hg] mm[Hg] Method: Sit DIASTOLIC mm[Hg] 2019-09-15 18:09:16 64 mm[Hg] mm[Hg] Method: Stand PULSE 2019-09-24 18:09:25 86 /min /min RESP RATE 2019-09-15 18:09:16 14 /min /min TEMP 2019-09-15 18:09:16 98.7 [degF] Procedures This patient has no known procedures. Results This patient has no known results.
--- OUTSIDE RECORDS SUMMARY | 2019-11-02 12:43 | XMS REPORT ---
:1955 Author Organization [facility] Care Team Providers Name Role Phone Unavailable Unavailable Unavailable Problems Condition Condition Condition Status Onset Resolution Last Treating Comments Name Details Category Date Date Treatment Clinician Date Aftercare Aftercare Diagnosis Active 2018-10 Fabian following following 11-16 Katt joint joint [id number] replacement replacement surgery surgery Presence of Presence of Diagnosis Active 2018-10 Fabian right right 2- Katt artificial artificial [id number] knee joint knee joint Major Major Diagnosis Active 2018-10 Fabian depressive depressive 2- Katt disorder, disorder, [id number] single single episode, episode, unspecified unspecified Obstructive Obstructive Diagnosis Active 2018-10 Fabian sleep apnea sleep apnea 2- Katt (adult) (adult) [id number] (pediatric) (pediatric) Unspecified Unspecified Diagnosis Active 2018-10 Fabian osteoarthri osteoarthri 2- Katt tis, tis, [id number] unspecified unspecified site site Gastro-esop Gastro-esop Diagnosis Active 2018-10 Fabian hageal hageal 2- Katt reflux reflux [id number] disease disease without without esophagitis esophagitis Lyme Lyme Diagnosis Active Fabian disease, disease, Kobziewicz unspecified unspecified [id number] Other Other Diagnosis Active Fabian specified specified Katt behavioral behavioral [id number] and and emotional emotional disorders disorders with onset with onset usually usually occurring occurring in in childhood childhood and and adolescence adolescence Calculus of Calculus of Diagnosis Active Fabian gallbladder gallbladder Kobziewicz without without [id number] cholecystit cholecystit is without is without obstruction 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 Fabian (current) (current) Katt use of use of [id number] aspirin aspirin Pain frequent Pain Mgmt Active 2018-10 Shadia pain 11-16 [place] 10:25: [id number] 00 Respiratory dyspnea Respirator Active 2018-10 Shadia present y 11-16 [place] 10:25: [id number] 00 Respiratory CPAP Respirator Active 2018-10 Shadia treatments y 11-16 [place] in home 10:25: [id number] 00 Endo/Earl anti-coagul Endo/Earl Active 2018-10 Shadia ation 11-16 [place] therapy 10:25: [id number] 00 Integument surgical Integument Active 2018-10 Shadia wound 11-16 [place] present 10:25: [id number] 00 Integument skin Integument Active 2018-10 Shadia integrity 11-16 [place] risk 10:25: [id number] 00 Nutrition nutritional Nutrition Active 2018-10 Shadia restriction 11-16 [place] s 10:25: [id number] 00 Elimination urinary Eliminatio Active 2018-10 Shadia incontinenc n 11-16 [place] e 10:25: [id number] 00 Neuro confusion Neuro/Emot Active 2018-10 Shadia present ion 11-16 [place] 10:25: [id number] 00 Activity ADL Activity Active 2018-10 Shadia assistance 11-16 [place] required 10:25: [id number] 00 Activity self-care Activity Active 2018-10 Shadia deficit 11-16 [place] 10:25: [id number] 00 Safety structural Safety Active 2018-10 Shadia barriers 11-16 [place] present 10:25: [id number] 00 Safety fall risk Safety Active 2018-10 Shadia factor 11-16 [place] present 10:25: [id number] 00 Safety risk for Safety Active 2018-10 Shadia hospitaliza 11-16 [place] tion 10:25: [id number] 00 Medication oral med Meds Active 2018-10 Shadia assistance 11-16 [place] required 10:25: [id number] 00 Medication knowledge/s Meds Active 2018-10 Shadia kill 11-16 [place] deficit: pt 10:25: [id number] 00 Musculoskel transfer Musculoske Active 2018-10 Shadia etal assistance letal 11-16 [place] required 10:25: [id number] 00 Musculoskel requires Musculoske Active 2018-10 Shadia etal human letal 11-16 [place] assist to 10:25: [id number] leave home 00 Safety can be left Safety Active 2018-10 Fabian alone for 11-16 [place]att only short 11:45: [id number] periods 00 ROM ROM PT: ROM Active 2018-10 Fabian deficit: LE 11-16 [place] 11:45: [id number] 00 ROM knowledge/s PT: ROM Active 2018-10 Fabian kill 11-16 [place] deficit LE: 11:45: [id number] pt 00 Strength/To knowledge/s PT: Active 2018-10 Fabian ne/Motor kill Strength 11-16 [place] Control deficit LE: 11:45: [id number] pt 00 Bed mobility/tr PT/OT: Bed Active 2018-10 Fabian Mobility/Tr ansfer Mobility/T 11-16 [place] ansfer device ransfer 11:45: [id number] present 00 Bed transfer PT/OT: Bed Active 2018-10 Fabian Mobility/Tr deficit: Mobility/T 11-16 [place] ansfer vehicle ransfer 11:45: [id number] 00 Bed knowledge/s PT/OT: Bed Active 2018-10 Fabian Mobility/Tr kill Mobility/T 11-16 [place] ansfer deficit: pt ransfer 11:45: [id number] 00 Balance/End balance/transfer coordinator PT/OT: Active 2018-10 Fabian urance rdination Balance/En 11-16 [place] deficit durance 11:45: [id number] 00 OT: Self self-care OT: Active 2018-10 Fabian Care deficit Self-Care 11-16 [place] 11:45: [id number] 00 OT: Self knowledge/s OT: Active 2018-10 Fabian Care kill Self-Care 11-16 [place] deficit: pt 11:45: [id number] 00 Gait/Locomo stair PT/OT: Active 2018-10 Fabian tion management Gait/Locom 11-16 [place] problems req otion 11:45: [id number] 00 Gait/Locomo gait PT/OT: Active 2018-10 Fabian tion assistive Gait/Locom 11-16 [place] problems device otion 11:45: [id number] present 00 Gait/Locomo knowledge/s PT/OT: Active 2018-10 Fabian tion kill Gait/Locom 11-16 [place] problems deficit: pt otion 11:45: [id number] 00 Gait/Locomo gait PT/OT: Active 2018-10 Fabian tion deficit Gait/Locom 11-16 [place] problems otion 11:45: [id number] 00 Allergies, Adverse Reactions, Alerts Allergy Name [...]
--- OUTSIDE RECORDS SUMMARY | 2019-11-02 12:43 | XMS REPORT ---
:1955 Author Organization [facility] Care Team Providers Name Role Phone Unavailable Unavailable Unavailable Problems Condition Condition Condition Status Onset Resolution Last Treating Comments Name Details Category Date Date Treatment Clinician Date Aftercare Aftercare Diagnosis Active 2018-10 Fabian following following 11-16 Katt joint joint [id number] replacement replacement surgery surgery Presence of Presence of Diagnosis Active 2018-10 Fabian right right 2- Katt artificial artificial [id number] knee joint knee joint Major Major Diagnosis Active 2018-10 Fabian depressive depressive 2- Katt disorder, disorder, [id number] single single episode, episode, unspecified unspecified Obstructive Obstructive Diagnosis Active 2018-10 Fabian sleep apnea sleep apnea 2- Katt (adult) (adult) [id number] (pediatric) (pediatric) Unspecified Unspecified Diagnosis Active 2018-10 Fabian osteoarthri osteoarthri 2- Katt tis, tis, [id number] unspecified unspecified site site Gastro-esop Gastro-esop Diagnosis Active 2018-10 Fabian hageal hageal 2- Katt reflux reflux [id number] disease disease without without esophagitis esophagitis Lyme Lyme Diagnosis Active Fabian disease, disease, Kobziewicz unspecified unspecified [id number] Other Other Diagnosis Active Fabian specified specified Katt behavioral behavioral [id number] and and emotional emotional disorders disorders with onset with onset usually usually occurring occurring in in childhood childhood and and adolescence adolescence Calculus of Calculus of Diagnosis Active Fabian gallbladder gallbladder Kobziewicz without without [id number] cholecystit cholecystit is without is without obstruction 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 Fabian (current) (current) Katt use of use of [id number] aspirin aspirin Pain frequent Pain Mgmt Active 2018-10 Shadia pain 11-16 [place] 10:25: [id number] 00 Respiratory dyspnea Respirator Active 2018-10 Shadia present y 11-16 [place] 10:25: [id number] 00 Respiratory CPAP Respirator Active 2018-10 Shadia treatments y 11-16 [place] in home 10:25: [id number] 00 Endo/Earl anti-coagul Endo/Earl Active 2018-10 Shadia ation 11-16 [place] therapy 10:25: [id number] 00 Integument surgical Integument Active 2018-10 Shadia wound 11-16 [place] present 10:25: [id number] 00 Integument skin Integument Active 2018-10 Shadia integrity 11-16 [place] risk 10:25: [id number] 00 Nutrition nutritional Nutrition Active 2018-10 Shadia restriction 11-16 [place] s 10:25: [id number] 00 Elimination urinary Eliminatio Active 2018-10 Shadia incontinenc n 11-16 [place] e 10:25: [id number] 00 Neuro confusion Neuro/Emot Active 2018-10 Shadia present ion 11-16 [place] 10:25: [id number] 00 Activity ADL Activity Active 2018-10 Shadia assistance 11-16 [place] required 10:25: [id number] 00 Activity self-care Activity Active 2018-10 Shadia deficit 11-16 [place] 10:25: [id number] 00 Safety structural Safety Active 2018-10 Shadia barriers 11-16 [place] present 10:25: [id number] 00 Safety fall risk Safety Active 2018-10 Shadia factor 11-16 [place] present 10:25: [id number] 00 Safety risk for Safety Active 2018-10 Shadia hospitaliza 11-16 [place] tion 10:25: [id number] 00 Medication oral med Meds Active 2018-10 Shadia assistance 11-16 [place] required 10:25: [id number] 00 Medication knowledge/s Meds Active 2018-10 Shadia kill 11-16 [place] deficit: pt 10:25: [id number] 00 Musculoskel transfer Musculoske Active 2018-10 Shadia etal assistance letal 11-16 [place] required 10:25: [id number] 00 Musculoskel requires Musculoske Active 2018-10 Shadia etal human letal 11-16 [place] assist to 10:25: [id number] leave home 00 Safety can be left Safety Active 2018-10 Fabian alone for 11-16 K[place] only short 11:45: [id number] periods 00 ROM ROM PT: ROM Active 2018-10 Fabian deficit: LE 11-16 [place] 11:45: [id number] 00 ROM knowledge/s PT: ROM Active 2018-10 Fabian kill 11-16 [place] deficit LE: 11:45: [id number] pt 00 Strength/To knowledge/s PT: Active 2018-10 Fabian ne/Motor kill Strength 11-16 [place] Control deficit LE: 11:45: [id number] pt 00 Bed mobility/tr PT/OT: Bed Active 2018-10 Fabian Mobility/Tr ansfer Mobility/T 11-16 Kobziewicz ansfer device ransfer 11:45: [id number] present 00 Bed transfer PT/OT: Bed Active 2018-10 Fabian Mobility/Tr deficit: Mobility/T 11-16 Kobziewicz ansfer vehicle ransfer 11:45: [id number] 00 Bed knowledge/s PT/OT: Bed Active 2018-10 Fabian Mobility/Tr kill Mobility/T 11-16 Kobziewicz ansfer deficit: pt ransfer 11:45: [id number] 00 Balance/End balance/social work program coordinator PT/OT: Active 2018-10 Fabian urance rdination Balance/En 11-16 Kobziewicz deficit durance 11:45: [id number] 00 OT: Self self-care OT: Active 2018-10 Fabian Care deficit Self-Care 11-16 [place] 11:45: [id number] 00 OT: Self knowledge/s OT: Active 2018-10 Fabian Care kill Self-Care 11-16 [place] deficit: pt 11:45: [id number] 00 Gait/Locomo stair PT/OT: Active 2018-10 Fabian tion management Gait/Locom 11-16 [place] problems req otion 11:45: [id number] 00 Gait/Locomo gait PT/OT: Active 2018-10 Fabian tion assistive Gait/Locom 11-16 Kobziewicz problems device otion 11:45: [id number] present 00 Gait/Locomo knowledge/s PT/OT: Active 2018-10 Fabian tion kill Gait/Locom 11-16 [place] problems deficit: pt otion 11:45: [id number] 00 Gait/Locomo gait PT/OT: Active 2018-10 Fabian tion deficit Gait/Locom 11-16 Kobz[place] problems otion 11:45: [id number] 00 Allergies, Adverse Reactions, Alerts Allergy Name [...] Observation Time Observation Value Comments SYSTOLIC mm[Hg] 2019-09-29 18:09:30 110 mm[Hg] mm[Hg] Method: Sit SYSTOLIC mm[Hg] 2019-09-15 18:09:16 102 mm[Hg] mm[Hg] Method: Stand DIASTOLIC mm[Hg] 2019-09-29 18:09:30 60 mm[Hg] mm[Hg] Method: Sit DIASTOLIC mm[Hg] 2019-09-15 18:09:16 64 mm[Hg] mm[Hg] Method: Stand PULSE 2019-09-29 18:09:30 88 /min /min RESP RATE 2019-09-15 18:09:16 14 /min /min TEMP 2019-09-15 18:09:16 98.7 [degF] Procedures This patient has no known procedures. Results This patient has no known results.
--- OUTSIDE RECORDS SUMMARY | 2019-11-02 12:43 | XMS REPORT ---
:1955 Author Organization [facility] Care Team Providers Name Role Phone Unavailable Unavailable Unavailable Problems Condition Condition Condition Status Onset Resolution Last Treating Comments Name Details Category Date Date Treatment Clinician Date Aftercare Aftercare Diagnosis Active 2018-10 Fabian following following 11-16 Katt joint joint [id number] replacement replacement surgery surgery Presence of Presence of Diagnosis Active 2018-10 Fabian right right 2- Katt artificial artificial [id number] knee joint knee joint Major Major Diagnosis Active 2018-10 Fabian depressive depressive 2- Katt disorder, disorder, [id number] single single episode, episode, unspecified unspecified Obstructive Obstructive Diagnosis Active 2018-10 Fabian sleep apnea sleep apnea 2- Katt (adult) (adult) [id number] (pediatric) (pediatric) Unspecified Unspecified Diagnosis Active 2018-10 Fabian osteoarthri osteoarthri 2- Katt tis, tis, [id number] unspecified unspecified site site Gastro-esop Gastro-esop Diagnosis Active 2018-10 Fabian hageal hageal 2- Katt reflux reflux [id number] disease disease without without esophagitis esophagitis Lyme Lyme Diagnosis Active Fabian disease, disease, Kobziewicz unspecified unspecified [id number] Other Other Diagnosis Active Fabian specified specified Katt behavioral behavioral [id number] and and emotional emotional disorders disorders with onset with onset usually usually occurring occurring in in childhood childhood and and adolescence adolescence Calculus of Calculus of Diagnosis Active Fabian gallbladder gallbladder Kobziewicz without without [id number] cholecystit cholecystit is without is without obstruction obstruction 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 Fabian (current) (current) Katt use of use of [id number] aspirin aspirin Pain frequent Pain Mgmt Active 2018-10 Shadia pain 11-16 [place] 10:25: [id number] 00 Respiratory dyspnea Respirator Active 2018-10 Shadia present y 11-16 [place] 10:25: [id number] 00 Respiratory CPAP Respirator Active 2018-10 Shadia treatments y 11-16 [place] in home 10:25: [id number] 00 Endo/Earl anti-coagul Endo/Earl Active 2018-10 Shadia ation 11-16 [place] therapy 10:25: [id number] 00 Integument surgical Integument Active 2018-10 Shadia wound 11-16 [place] present 10:25: [id number] 00 Integument skin Integument Active 2018-10 Shadia integrity 11-16 [place] risk 10:25: [id number] 00 Nutrition nutritional Nutrition Active 2018-10 Shadia restriction 11-16 [place] s 10:25: [id number] 00 Elimination urinary Eliminatio Active 2018-10 Shadia incontinenc n 11-16 [place] e 10:25: [id number] 00 Neuro confusion Neuro/Emot Active 2018-10 Shadia present ion 11-16 [place] 10:25: [id number] 00 Activity ADL Activity Active 2018-10 Shadia assistance 11-16 [place] required 10:25: [id number] 00 Activity self-care Activity Active 2018-10 Shadia deficit 11-16 [place] 10:25: [id number] 00 Safety structural Safety Active 2018-10 Shadia barriers 11-16 [place] present 10:25: [id number] 00 Safety fall risk Safety Active 2018-10 Shadia factor 11-16 [place] present 10:25: [id number] 00 Safety risk for Safety Active 2018-10 Shadia hospitaliza 11-16 [place] tion 10:25: [id number] 00 Medication oral med Meds Active 2018-10 Shadia assistance 11-16 [place] required 10:25: [id number] 00 Medication knowledge/s Meds Active 2018-10 Shadia kill 11-16 [place] deficit: pt 10:25: [id number] 00 Musculoskel transfer Musculoske Active 2018-10 Shadia etal assistance letal 11-16 [place] required 10:25: [id number] 00 Musculoskel requires Musculoske Active 2018-10 Shadia etal human letal 11-16 [place] assist to 10:25: [id number] leave home 00 Safety can be left Safety Active 2018-10 Fabian alone for 11-16 Katt only short 11:45: [id number] periods 00 ROM ROM PT: ROM Active 2018-10 Fabian deficit: LE 11-16 [place] 11:45: [id number] 00 ROM knowledge/s PT: ROM Active 2018-10 Fabian kill 11-16 Kobziewicz deficit LE: 11:45: [id number] pt 00 Strength/To knowledge/s PT: Active 2018-10 Fabian ne/Motor kill Strength 11-16 Kobziewicz Control deficit LE: 11:45: [id number] pt 00 Bed mobility/tr PT/OT: Bed Active 2018-10 Fabian Mobility/Tr ansfer Mobility/T 11-16 Kobziewicz ansfer device ransfer 11:45: [id number] present 00 Bed transfer PT/OT: Bed Active 2018-10 Fabian Mobility/Tr deficit: Mobility/T 11-16 Kobziewicz ansfer vehicle ransfer 11:45: [id number] 00 Bed knowledge/s PT/OT: Bed Active 2018-10 Fabian Mobility/Tr kill Mobility/T 11-16 Kobziewicz ansfer deficit: pt ransfer 11:45: [id number] 00 Balance/End balance/cooler man PT/OT: Active 2018-10 Fabian urance rdination Balance/En 11-16 Kobziewicz deficit durance 11:45: [id number] 00 OT: Self self-care OT: Active 2018-10 Fabian Care deficit Self-Care 11-16 [place] 11:45: [id number] 00 OT: Self knowledge/s OT: Active 2018-10 Fabian Care kill Self-Care 11-16 Kobziewicz deficit: pt 11:45: [id number] 00 Gait/Locomo stair PT/OT: Active 2018-10 Fabian tion management Gait/Locom 11-16 Kobziewicz problems req otion 11:45: [id number] 00 Gait/Locomo gait PT/OT: Active 2018-10 Fabian tion assistive Gait/Locom 11-16 Kobziewicz problems device otion 11:45: [id number] present 00 Gait/Locomo knowledge/s PT/OT: Active 2018-10 Fabian tion kill Gait/Locom 11-16 Kobziewicz problems deficit: pt otion 11:45: [id number] 00 Gait/Locomo gait PT/OT: Active 2018-10 Fabian tion deficit Gait/Locom 11-16 Kobziewicz problems otion 11:45: [id number] 00 Allergies, Adverse Reactions, Alerts Allergy Name [...]
--- OUTSIDE RECORDS SUMMARY | 2019-11-02 12:43 | XMS REPORT ---
:1955 Author Organization [facility] Care Team Providers Name Role Phone Unavailable Unavailable Unavailable Problems Condition Condition Condition Status Onset Resolution Last Treating Comments Name Details Category Date Date Treatment Clinician Date Aftercare Aftercare Diagnosis Active 2018-10 Fabian following following 11-16 Katt joint joint [id number] replacement replacement surgery surgery Presence of Presence of Diagnosis Active 2018-10 Fabian right right 2- Katt artificial artificial [id number] knee joint knee joint Major Major Diagnosis Active 2018-10 Fabian depressive depressive 2- Katt disorder, disorder, [id number] single single episode, episode, unspecified unspecified Obstructive Obstructive Diagnosis Active 2018-10 Fabian sleep apnea sleep apnea 2- Katt (adult) (adult) [id number] (pediatric) (pediatric) Unspecified Unspecified Diagnosis Active 2018-10 Fabian osteoarthri osteoarthri 2- Katt tis, tis, [id number] unspecified unspecified site site Gastro-esop Gastro-esop Diagnosis Active 2018-10 Fabian hageal hageal 2- Katt reflux reflux [id number] disease disease without without esophagitis esophagitis Lyme Lyme Diagnosis Active Fabian disease, disease, Kobziewicz unspecified unspecified [id number] Other Other Diagnosis Active Fbaian specified specified Katt behavioral behavioral [id number] and and emotional emotional disorders disorders with onset with onset usually usually occurring occurring in in childhood childhood and and adolescence adolescence Calculus of Calculus of Diagnosis Active Fabian gallbladder gallbladder Kobziewicz without without [id number] cholecystit cholecystit is without is without obstruction 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 (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) (current) Katt use of use of [id number] aspirin aspirin Pain frequent Pain Mgmt Active 2018-10 Shadia pain 11-16 [place] 10:25: [id number] 00 Respiratory dyspnea Respirator Active 2018-10 Shadia present y 11-16 [place] 10:25: [id number] 00 Respiratory CPAP Respirator Active 2018-10 Shadia treatments y 11-16 [place] in home 10:25: [id number] 00 Endo/Earl anti-coagul Endo/Earl Active 2018-10 Shadia ation 11-16 [place] therapy 10:25: [id number] 00 Integument surgical Integument Active 2018-10 Shadia wound 11-16 [place] present 10:25: [id number] 00 Integument skin Integument Active 2018-10 Shadia integrity 11-16 [place] risk 10:25: [id number] 00 Nutrition nutritional Nutrition Active 2018-10 Shadia restriction 11-16 [place] s 10:25: [id number] 00 Elimination urinary Eliminatio Active 2018-10 Shadia incontinenc n 11-16 [place] e 10:25: [id number] 00 Neuro confusion Neuro/Emot Active 2018-10 Shadia present ion 11-16 [place] 10:25: [id number] 00 Activity ADL Activity Active 2018-10 Shadia assistance 11-16 [place] required 10:25: [id number] 00 Activity self-care Activity Active 2018-10 Shadia deficit 11-16 [place] 10:25: [id number] 00 Safety structural Safety Active 2018-10 Shadia barriers 11-16 [place] present 10:25: [id number] 00 Safety fall risk Safety Active 2018-10 Shadia factor 11-16 [place] present 10:25: [id number] 00 Safety risk for Safety Active 2018-10 Shadia hospitaliza 11-16 [place] tion 10:25: [id number] 00 Medication oral med Meds Active 2018-10 Shadia assistance 11-16 [place] required 10:25: [id number] 00 Medication knowledge/s Meds Active 2018-10 Shadia kill 11-16 [place] deficit: pt 10:25: [id number] 00 Musculoskel transfer Musculoske Active 2018-10 Shadia etal assistance letal 11-16 [place] required 10:25: [id number] 00 Musculoskel requires Musculoske Active 2018-10 Shadia etal human letal 11-16 [place] assist to 10:25: [id number] leave home 00 Safety can be left Safety Active 2018-10 Fabian alone for 11-16 [place] only short 11:45: [id number] periods 00 ROM ROM PT: ROM Active 2018-10 Fabian deficit: LE 11-16 [place] 11:45: [id number] 00 ROM knowledge/s PT: ROM Active 2018-10 Fabian kill 11-16 Kobziewicz deficit LE: 11:45: [id number] pt 00 Strength/To knowledge/s PT: Active 2018-10 Fabian ne/Motor kill Strength 11-16 Kobziewicz Control deficit LE: 11:45: [id number] pt 00 Bed mobility/tr PT/OT: Bed Active 2018-10 Fabian Mobility/Tr ansfer Mobility/T 11-16 Kobziewicz ansfer device ransfer 11:45: [id number] present 00 Bed transfer PT/OT: Bed Active 2018-10 Fabian Mobility/Tr deficit: Mobility/T 11-16 Kobziewicz ansfer vehicle ransfer 11:45: [id number] 00 Bed knowledge/s PT/OT: Bed Active 2018-10 Fabian Mobility/Tr kill Mobility/T 11-16 Kobziewicz ansfer deficit: pt ransfer 11:45: [id number] 00 Balance/End balance/maintenance coordinator PT/OT: Active 2018-10 Fabian urance rdination Balance/En 11-16 Kobziewicz deficit durance 11:45: [id number] 00 OT: Self self-care OT: Active 2018-10 Fabian Care deficit Self-Care 11-16 [place] 11:45: [id number] 00 OT: Self knowledge/s OT: Active 2018-10 Fabian Care kill Self-Care 11-16 Kobziewicz deficit: pt 11:45: [id number] 00 Gait/Locomo stair PT/OT: Active 2018-10 Fabian tion management Gait/Locom 11-16 Kobziewicz problems req otion 11:45: [id number] 00 Gait/Locomo gait PT/OT: Active 2018-10 Fabian tion assistive Gait/Locom 11-16 Kobziewicz problems device otion 11:45: [id number] present 00 Gait/Locomo knowledge/s PT/OT: Active 2018-10 Fabian tion kill Gait/Locom 11-16 Kobziewicz problems deficit: pt otion 11:45: [id number] 00 Gait/Locomo gait PT/OT: Active 2018-10 Fabian tion deficit Gait/Locom 11-16 Kobziewicz problems otion 11:45: [id number] 00 Allergies, Adverse Reactions, Alerts Allergy Name [...]
--- OUTSIDE RECORDS SUMMARY | 2019-11-02 12:43 | XMS REPORT ---
:1955 Author Organization [facility] Care Team Providers Name Role Phone Unavailable Unavailable Unavailable Problems Condition Condition Condition Status Onset Resolution Last Treating Comments Name Details Category Date Date Treatment Clinician Date Pain frequent Pain Mgmt Active 2018-10 Shadia pain 11-16 [place] 10:25: [id number] 00 Respiratory dyspnea Respirator Active 2018-10 Shadia present y 11-16 [place] 10:25: [id number] 00 Respiratory CPAP Respirator Active 2018-10 Shadia treatments y 11-16 [place] in home 10:25: [id number] 00 Endo/Earl anti-coagul Endo/Earl Active 2018-10 Shadia ation 11-16 [place] therapy 10:25: [id number] 00 Integument surgical Integument Active 2018-10 Shadia wound 11-16 [place] present 10:25: [id number] 00 Integument skin Integument Active 2018-10 Shadia integrity 11-16 [place] risk 10:25: [id number] 00 Nutrition nutritional Nutrition Active 2018-10 Shadia restriction 11-16 [place] s 10:25: [id number] 00 Elimination urinary Eliminatio Active 2018-10 Shadia incontinenc n 11-16 [place] e 10:25: [id number] 00 Neuro confusion Neuro/Emot Active 2018-10 Shadia present ion 11-16 [place] 10:25: [id number] 00 Activity ADL Activity Active 2018-10 Shadia assistance 11-16 [place] required 10:25: [id number] 00 Activity self-care Activity Active 2018-10 Shadia deficit 11-16 [place] 10:25: [id number] 00 Safety structural Safety Active 2018-10 Shadia barriers 11-16 [place] present 10:25: [id number] 00 Safety fall risk Safety Active 2018-10 Shadia factor 11-16 [place] present 10:25: [id number] 00 Safety risk for Safety Active 2018-10 Shadia hospitaliza 11-16 [place] tion 10:25: [id number] 00 Medication oral med Meds Active 2018-10 Shadia assistance 11-16 Rosa M required 10:25: [id number] 00 Medication knowledge/s Meds Active 2018-10 Shadia kill 11-16 [place] M deficit: pt 10:25: [id number] 00 Musculoskel transfer Musculoske Active 2018-10 Shadia etal assistance letal 11-16 [place] M required 10:25: [id number] 00 Musculoskel requires Musculoske Active 2018-10 Shadia etal human letal 11-16 [place] M assist to 10:25: [id number] leave home 00 Safety can be left Safety Active 2018-10 Fabian alone for 11-16 Kobziewicz only short 11:45: [id number] periods 00 ROM ROM PT: ROM Active 2018-10 Fabian deficit: LE 11-16 [place] 11:45: [id number] 00 ROM knowledge/s PT: ROM Active 2018-10 Fabian kill 11-16 Kobziewicz deficit LE: 11:45: [id number] pt 00 Strength/To knowledge/s PT: Active 2018-10 Fabian ne/Motor kill Strength 11-16 [place]minewicz Control deficit LE: 11:45: [id number] pt 00 Bed mobility/tr PT/OT: Bed Active 2018-10 Fabian Mobility/Tr ansfer Mobility/T 11-16 Kobminewicz ansfer device ransfer 11:45: [id number] present 00 Bed transfer PT/OT: Bed Active 2018-10 Fabian Mobility/Tr deficit: Mobility/T 11-16 Kobminewicz ansfer vehicle ransfer 11:45: [id number] 00 Bed knowledge/s PT/OT: Bed Active 2018-10 Fabian Mobility/Tr kill Mobility/T 11-16 Kobziewicz ansfer deficit: pt ransfer 11:45: [id number] 00 Balance/End balance/lean manufacturing coordinator PT/OT: Active 2018-10 Fabian urance rdination Balance/En 11-16 Yod[place]iewicz deficit durance 11:45: [id number] 00 OT: Self self-care OT: Active 2018-10 Fabian Care deficit Self-Care 11-16 [place] 11:45: [id number] 00 OT: Self knowledge/s OT: Active 2018-10 Fabian Care kill Self-Care 11-16 Kobziewicz deficit: pt 11:45: [id number] 00 Gait/Locomo stair PT/OT: Active 2018-10 Fabian oakeson management Gait/Locom - Kobziewicz problems req otion 11:45: [id number] 00 Gait/Locomo gait PT/OT: Active 2018-10 Fabian tion assistive Gait/Locom - Kobziewicz problems device otion 11:45: [id number] present 00 Gait/Locomo knowledge/s PT/OT: Active 2018-10 Fabian tion kill Gait/Locom - Kobziewicz problems deficit: pt otion 11:45: [id number] 00 Gait/Locomo gait PT/OT: Active 2018-10 Fabian tion deficit Gait/Locom - Kobziewicz problems otion 11:45: [id number] 00 Allergies, Adverse Reactions, Alerts Allergy Name [...] 2018-10 Yes Ginnetti Unknown Unknown Extra Extra 11-16 Jose GIVENS Strength Strength 500 mg 500 mg tablet tablet docusate docusate 2018-10 Yes Ginnetti Unknown Unknown sodium 100 sodium 100 11-16 [...] Observation Time Observation Value Comments SYSTOLIC mm[Hg] 2019-09-17 18:09:18 110 mm[Hg] mm[Hg] Method: Sit SYSTOLIC mm[Hg] 2019-09-15 18:09:16 102 mm[Hg] mm[Hg] Method: Stand DIASTOLIC mm[Hg] 2019-09-17 18:09:18 60 mm[Hg] mm[Hg] Method: Sit DIASTOLIC mm[Hg] 2019-09-15 18:09:16 64 mm[Hg] mm[Hg] Method: Stand PULSE 2019-09-17 18:09:18 86 /min /min RESP RATE 2019-09-15 18:09:16 14 /min /min TEMP 2019-09-15 18:09:16 98.7 [degF] Procedures This patient has no known procedures. Results This patient has no known results.
--- OUTSIDE RECORDS SUMMARY | 2019-11-02 12:43 | XMS REPORT ---
:1955 Author Organization [facility] Care Team Providers Name Role Phone Unavailable Unavailable Unavailable Problems Condition Condition Condition Status Onset Resolution Last Treating Comments Name Details Category Date Date Treatment Clinician Date Aftercare Aftercare Diagnosis Active 2018-10 Fabian following following 11-16 Katt joint joint [id number] replacement replacement surgery surgery Presence of Presence of Diagnosis Active 2018-10 Fabian right right 2- Katt artificial artificial [id number] knee joint knee joint Major Major Diagnosis Active 2018-10 Fabian depressive depressive 2- Katt disorder, disorder, [id number] single single episode, episode, unspecified unspecified Obstructive Obstructive Diagnosis Active 2018-10 Fabian sleep apnea sleep apnea 2-05 Katt (adult) (adult) [id number] (pediatric) (pediatric) Unspecified Unspecified Diagnosis Active 2018-10 Fabain osteoarthri osteoarthri 2-05 Katt tis, tis, [id number] unspecified unspecified site site Gastro-esop Gastro-esop Diagnosis Active 2018-10 Fabian hageal hageal 2-05 Katt reflux reflux [id number] disease disease without without esophagitis esophagitis Lyme Lyme Diagnosis Active Fabian disease, disease, Kobziewicz unspecified unspecified [id number] Other Other Diagnosis Active Fabian specified specified Katt behavioral behavioral [id number] and and emotional emotional disorders disorders with onset with onset usually usually occurring occurring in in childhood childhood and and adolescence adolescence Calculus of Calculus of Diagnosis Active Fabian gallbladder gallbladder Kobziewicz without without [id number] cholecystit cholecystit is without is without obstruction 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 Fabian (current) (current) Katt use of use of [id number] aspirin aspirin Pain frequent Pain Mgmt Resolve 2018-102019-10-06 Shadia pain d 11-16 11:15:00 Rosa M 10:25: [id number] 00 Respiratory dyspnea Respirator Resolve 2018-102019-10-06 Shadia present y d 11-16 11:15:00 Rosa M 10:25: [id number] 00 Respiratory CPAP Respirator Resolve 2018-102019-10-06 Shadia treatments y d 11-16 11:15:00 Rosa M in home 10:25: [id number] 00 Endo/Earl anti-coagul Endo/Earl Resolve 2018-102019-10-06 Shadia ation d 11-16 11:15:00 Rosa M therapy 10:25: [id number] 00 Integument surgical Integument Resolve 2018-102019-10-06 Shadia wound d 11-16 11:15:00 Rosa M present 10:25: [id number] 00 Integument skin Integument Resolve 2018-102019-10-06 Shadia integrity d 11-16 11:15:00 [place] risk 10:25: [id number] 00 Nutrition nutritional Nutrition Resolve 2018-102019-10-06 Shadia restriction d 11-16 11:15:00 Rosa M s 10:25: [id number] 00 Elimination urinary Eliminatio Resolve 2018-102019-10-06 Shadia incontinenc n d 11-16 11:15:00 [place] e 10:25: [id number] 00 Neuro confusion Neuro/Emot Resolve 2018-102019-10-06 Shadia present ion d 11-16 11:15:00 [place] 10:25: [id number] 00 Activity ADL Activity Resolve 2018-102019-10-06 Shadia assistance d 11-16 11:15:00 Rosa M required 10:25: [id number] 00 Activity self-care Activity Resolve 2018-102019-10-06 Shadia deficit d 11-16 11:15:00 [place] 10:25: [id number] 00 Safety structural Safety Resolve 2018-102019-10-06 Shadia barriers d 11-16 11:15:00 [place] present 10:25: [id number] 00 Safety fall risk Safety Resolve 2018-102019-10-06 Shadia factor d 11-16 11:15:00 Rosa M present 10:25: [id number] 00 Safety risk for Safety Resolve 2018-102019-10-06 Shadia hospitaliza d 11-16 11:15:00 Rosa M tion 10:25: [id number] 00 Medication oral med Meds Resolve 2018-102019-10-06 Shadia assistance d 11-16 11:15:00 [place] required 10:25: [id number] 00 Medication knowledge/s Meds Resolve 2018-102019-10-06 Shadia kill d 11-16 11:15:00 [place] deficit: pt 10:25: [id number] 00 Musculoskel transfer Musculoske Resolve 2018-102019-10-06 Shadia etal assistance letal d 11-16 11:15:00 Rosa M required 10:25: [id number] 00 Musculoskel requires Musculoske Resolve 2018-102019-10-06 Shadia etal human letal d 11-16 11:15:00 [place] assist to 10:25: [id number] leave home 00 Safety can be left Safety Resolve 2018-102019-10-06 Fabian alone for d 11-16 11:15:00 Katt clark short 11:45: [id number] periods 00 ROM ROM PT: ROM Resolve 2018-102019-10-06 Fabian deficit: LE d 11-16 11:15:00 Katt 11:45: [id number] 00 ROM knowledge/s PT: ROM Resolve 2018-102019-10-06 Fabian kill d 11-16 11:15:00 Katt deficit LE: 11:45: [id number] pt 00 Strength/To knowledge/s PT: Resolve 2018-102019-10-06 Fabian ne/Motor kill Strength d 11-16 11:15:00 Katt Control deficit LE: 11:45: [id number] pt 00 Bed mobility/tr PT/OT: Bed Resolve 2018-102019-10-06 Fabian Mobility/Tr ansfer Mobility/T d 11-16 11:15:00 Katt davis device ransfer 11:45: [id number] present 00 Bed transfer PT/OT: Bed Resolve 2018-102019-10-06 Fabian Mobility/Tr deficit: Mobility/T d 11-16 11:15:00 Katt davis vehicle ransfer 11:45: [id number] 00 Bed knowledge/s PT/OT: Bed Resolve 2018-102019-10-06 Fabian Mobility/Tr kill Mobility/T d 11-16 11:15:00 Katt davis deficit: pt ransfer 11:45: [id number] 00 Balance/End balance/continuity coordinator PT/OT: Resolve 2018-102019-10-06 Fabian eliance rdination Balance/En d 11-16 11:15:00 Kobziewicz deficit durance 11:45: [id number] 00 OT: Self self-care OT: Resolve 2018-102019-10-06 Fabian Care deficit Self-Care d 11-16 11:15:00 Kobziewicz 11:45: [id number] 00 OT: Self knowledge/s OT: Resolve 2018-102019-10-06 Fabian Care kill Self-Care d 11-16 11:15:00 Kobziewicz deficit: pt 11:45: [id number] 00 Gait/Locomo stair PT/OT: Resolve 2018-102019-10-06 Fabian tion management Gait/Locom d 11-16 11:15:00 Kobziewicz problems req otion 11:45: [id number] 00 Gait/Locomo gait PT/OT: Resolve 2018-102019-10-06 Fabian tion assistive Gait/Locom d 11-16 11:15:00 Kobziewicz problems device otion 11:45: [id number] present 00 Gait/Locomo knowledge/s PT/OT: Resolve 2018-102019-10-06 Fabian tion kill Gait/Locom d 11-16 11:15:00 Kobziewicz problems deficit: pt otion 11:45: [id number] 00 Gait/Locomo gait PT/OT: Resolve 2018-102019-10-06 Fabian tion deficit Gait/Locom d 11-16 11:15:00 Kobziewicz problems otion 11:45: [id number] 00 Allergies, Adverse Reactions, Alerts Allergy Name [...]
--- OUTSIDE RECORDS SUMMARY | 2019-11-02 12:43 | XMS REPORT ---
:1955 Author Organization [facility] Care Team Providers Name Role Phone Unavailable Unavailable Unavailable Problems Condition Condition Condition Status Onset Resolution Last Treating Comments Name Details Category Date Date Treatment Clinician Date Aftercare Aftercare Diagnosis Active 2018-10 Fabian following following 11-16 Katt joint joint [id number] replacement replacement surgery surgery Presence of Presence of Diagnosis Active 2018-10 Fabian right right 2- Katt artificial artificial [id number] knee joint knee joint Major Major Diagnosis Active 2018-10 Fabian depressive depressive 2- Katt disorder, disorder, [id number] single single episode, episode, unspecified unspecified Obstructive Obstructive Diagnosis Active 2018-10 Fabian sleep apnea sleep apnea 2- Katt (adult) (adult) [id number] (pediatric) (pediatric) Unspecified Unspecified Diagnosis Active 2018-10 Fabian osteoarthri osteoarthri 2- Katt tis, tis, [id number] unspecified unspecified site site Gastro-esop Gastro-esop Diagnosis Active 2018-10 Fabian hageal hageal 2- Katt reflux reflux [id number] disease disease without without esophagitis esophagitis Lyme Lyme Diagnosis Active Fabian disease, disease, Kobziewicz unspecified unspecified [id number] Other Other Diagnosis Active Fabian specified specified Katt behavioral behavioral [id number] and and emotional emotional disorders disorders with onset with onset usually usually occurring occurring in in childhood childhood and and adolescence adolescence Calculus of Calculus of Diagnosis Active Fabian gallbladder gallbladder Kobziewicz without without [id number] cholecystit cholecystit is without is without obstruction obstruction 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 Diagnosis Active Fabian (current) (current) Katt use of use of [id number] aspirin aspirin Pain frequent Pain Mgmt Active 2018-10 Shadia pain 11-16 [place] 10:25: [id number] 00 Respiratory dyspnea Respirator Active 2018-10 Shadia present y 11-16 [place] 10:25: [id number] 00 Respiratory CPAP Respirator Active 2018-10 Shadia treatments y 11-16 [place] in home 10:25: [id number] 00 Endo/Earl anti-coagul Endo/Earl Active 2018-10 Shadia ation 11-16 [place] therapy 10:25: [id number] 00 Integument surgical Integument Active 2018-10 Shadia wound 11-16 [place] present 10:25: [id number] 00 Integument skin Integument Active 2018-10 Shadia integrity 11-16 [place] risk 10:25: [id number] 00 Nutrition nutritional Nutrition Active 2018-10 Shadia restriction 11-16 [place] s 10:25: [id number] 00 Elimination urinary Eliminatio Active 2018-10 Shadia incontinenc n 11-16 [place] e 10:25: [id number] 00 Neuro confusion Neuro/Emot Active 2018-10 Shadia present ion 11-16 [place] 10:25: [id number] 00 Activity ADL Activity Active 2018-10 Shadia assistance 11-16 [place] required 10:25: [id number] 00 Activity self-care Activity Active 2018-10 Shadia deficit 11-16 [place] 10:25: [id number] 00 Safety structural Safety Active 2018-10 Shadia barriers 11-16 [place] present 10:25: [id number] 00 Safety fall risk Safety Active 2018-10 Shadia factor 11-16 [place] present 10:25: [id number] 00 Safety risk for Safety Active 2018-10 Shadia hospitaliza 11-16 [place] tion 10:25: [id number] 00 Medication oral med Meds Active 2018-10 Shadia assistance 11-16 [place] required 10:25: [id number] 00 Medication knowledge/s Meds Active 2018-10 Shadia kill 11-16 [place] deficit: pt 10:25: [id number] 00 Musculoskel transfer Musculoske Active 2018-10 Shadia etal assistance letal 11-16 [place] required 10:25: [id number] 00 Musculoskel requires Musculoske Active 2018-10 Shadia etal human letal 11-16 [place] assist to 10:25: [id number] leave home 00 Safety can be left Safety Active 2018-10 Fabian alone for 11-16 [place] only short 11:45: [id number] periods 00 ROM ROM PT: ROM Active 2018-10 Fabian deficit: LE 11-16 [place] 11:45: [id number] 00 ROM knowledge/s PT: ROM Active 2018-10 Fabian kill 11-16 [place] deficit LE: 11:45: [id number] pt 00 Strength/To knowledge/s PT: Active 2018-10 Fabian ne/Motor kill Strength 11-16 [place] Control deficit LE: 11:45: [id number] pt 00 Bed mobility/tr PT/OT: Bed Active 2018-10 Fabian Mobility/Tr ansfer Mobility/T 11-16 [place] ansfer device ransfer 11:45: [id number] present 00 Bed transfer PT/OT: Bed Active 2018-10 Fabian Mobility/Tr deficit: Mobility/T 11-16 [place] ansfer vehicle ransfer 11:45: [id number] 00 Bed knowledge/s PT/OT: Bed Active 2018-10 Fabian Mobility/Tr kill Mobility/T 11-16 [place] ansfer deficit: pt ransfer 11:45: [id number] 00 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/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/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 and 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 PT/OT: Active 2018-10 Fabian urance rdination Balance/En 11-16 [place] deficit durance 11:45: [id number] 00 OT: Self self-care OT: Active 2018-10 Fabian Care deficit Self-Care 11-16 [place] 11:45: [id number] 00 OT: Self knowledge/s OT: Active 2018-10 Fabian Care kill Self-Care 11-16 [place] deficit: pt 11:45: [id number] 00 Gait/Locomo stair PT/OT: Active 2018-10 Fabian tion management Gait/Locom 11-16 [place] problems req otion 11:45: [id number] 00 Gait/Locomo gait PT/OT: Active 2018-10 Fabian tion assistive Gait/Locom 11-16 [place] problems device otion 11:45: [id number] present 00 Gait/Locomo knowledge/s PT/OT: Active 2018-10 Fabian tion kill Gait/Locom 11-16 [place] problems deficit: pt otion 11:45: [id number] 00 Gait/Locomo gait PT/OT: Active 2018-10 Fabian tion deficit Gait/Locom 11-16 [place] problems otion 11:45: [id number] 00 Allergies, Adverse Reactions, Alerts Allergy Name [...]
--- OUTSIDE RECORDS SUMMARY | 2019-11-02 12:44 | XMS REPORT ---
:1955 Author Organization [facility] Care Team Providers Name Role Phone Unavailable Unavailable Unavailable Problems This patient has no known problems. Allergies, Adverse Reactions, Alerts Allergy Name Allergy [...] Date Date Medication? Clinician (SIG) Name Name No Known No Known No None None None Medications Medications For This For This Patient Patient Procedures This patient has no known procedures. Results This patient has no known results.
--- OUTSIDE RECORDS SUMMARY | 2019-11-02 12:44 | XMS REPORT ---
:1955 Author Organization [facility] Care Team Providers Name Role Phone Unavailable Unavailable Unavailable Problems Condition Condition Condition Status Onset Resolution Last Treating Comments Name Details Category Date Date Treatment Clinician Date Pain frequent Pain Mgmt Active 2018-10 Shadia pain 11-16 [place] 10:25: [id number] 00 Respiratory dyspnea Respirator Active 2018-10 Shadia present y 11-16 [place] 10:25: [id number] 00 Respiratory CPAP Respirator Active 2018-10 Shadia treatments y 11-16 [place] in home 10:25: [id number] 00 Endo/Earl anti-coagul Endo/Earl Active 2018-10 Shadia ation 11-16 [place] therapy 10:25: [id number] 00 Integument surgical Integument Active 2018-10 Shadia wound 11-16 [place] present 10:25: [id number] 00 Integument skin Integument Active 2018-10 Shadia integrity 11-16 [place] risk 10:25: [id number] 00 Nutrition nutritional Nutrition Active 2018-10 Shadia restriction 11-16 [place] s 10:25: [id number] 00 Elimination urinary Eliminatio Active 2018-10 Shadia incontinenc n 11-16 [place] e 10:25: [id number] 00 Neuro confusion Neuro/Emot Active 2018-10 Shadia present ion 11-16 [place] 10:25: [id number] 00 Activity ADL Activity Active 2018-10 Shadia assistance 11-16 [place] required 10:25: [id number] 00 Activity self-care Activity Active 2018-10 Shadia deficit 11-16 [place] 10:25: [id number] 00 Safety structural Safety Active 2018-10 Shadia barriers 11-16 [place] present 10:25: [id number] 00 Safety fall risk Safety Active 2018-10 Shadia factor 11-16 [place] present 10:25: [id number] 00 Safety risk for Safety Active 2018-10 Shadia hospitaliza 11-16 [place] tion 10:25: [id number] 00 Medication oral med Meds Active 2018-10 Shadia assistance 11-16 [place] M required 10:25: [id number] 00 Medication knowledge/s Meds Active 2018-10 Shadia kill 11-16 [place] deficit: pt 10:25: [id number] 00 Musculoskel transfer Musculoske Active 2018-10 Shadia etal assistance letal 11-16 [place] required 10:25: [id number] 00 Musculoskel requires Musculoske Active 2018-10 Shadia etal human letal 11-16 [place] assist to 10:25: [id number] leave home 00 Safety can be left Safety Active 2018-10 Fabian alone for 11-16 [place] only short 11:45: [id number] periods 00 ROM ROM PT: ROM Active 2018-10 Fabian deficit: LE 11-16 [place] 11:45: [id number] 00 ROM knowledge/s PT: ROM Active 2018-10 Fabian kill 11-16 [place] deficit LE: 11:45: [id number] pt 00 Strength/To knowledge/s PT: Active 2018-10 Fabian ne/Motor kill Strength 11-16 [place] Control deficit LE: 11:45: [id number] pt 00 Bed mobility/tr PT/OT: Bed Active 2018-10 Fabian Mobility/Tr ansfer Mobility/T 11-16 [place] ansfer device ransfer 11:45: [id number] present 00 Bed transfer PT/OT: Bed Active 2018-10 Fabian Mobility/Tr deficit: Mobility/T 11-16 [place] ansfer vehicle ransfer 11:45: [id number] 00 Bed knowledge/s PT/OT: Bed Active 2018-10 Fabian Mobility/Tr kill Mobility/T 11-16 Kobziewicz ansfer deficit: pt ransfer 11:45: [id number] 00 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 PT/OT: Active 2018-10 Fabian urance rdination Balance/En 11-16 [place] deficit durance 11:45: [id number] 00 OT: Self self-care OT: Active 2018-10 Fabian Care deficit Self-Care 11-16 [place] 11:45: [id number] 00 OT: Self knowledge/s OT: Active 2018-10 Fabian Care kill Self-Care 11-16 [place] deficit: pt 11:45: [id number] 00 Gait/Locomo stair PT/OT: Active 2018-10 Fabian oakeson management Gait/Locom - Kobziewicz problems req otion 11:45: [id number] 00 Gait/Locomo gait PT/OT: Active 2018-10 Fabian tion assistive Gait/Locom - Kobziewicz problems device otion 11:45: [id number] present 00 Gait/Locomo knowledge/s PT/OT: Active 2018-10 Fabian tion kill Gait/Locom - Kobziewicz problems deficit: pt otion 11:45: [id number] 00 Gait/Locomo gait PT/OT: Active 2018-10 Fabian tion deficit Gait/Locom - Kobziewicz problems otion 11:45: [id number] 00 Allergies, Adverse Reactions, Alerts Allergy Name [...] Observation Time Observation Value Comments SYSTOLIC mm[Hg] 2019-09-15 18:09:16 100 mm[Hg] mm[Hg] Method: Sit SYSTOLIC mm[Hg] 2019-09-15 18:09:16 102 mm[Hg] mm[Hg] Method: Stand DIASTOLIC mm[Hg] 2019-09-15 18:09:16 58 mm[Hg] mm[Hg] Method: Sit DIASTOLIC mm[Hg] 2019-09-15 18:09:16 64 mm[Hg] mm[Hg] Method: Stand PULSE 2019-09-15 18:09:16 88 /min /min RESP RATE 2019-09-15 18:09:16 14 /min /min TEMP 2019-09-15 18:09:16 98.7 [degF] Procedures This patient has no known procedures. Results This patient has no known results.
--- OUTSIDE RECORDS SUMMARY | 2019-11-02 12:44 | XMS REPORT ---
:1955 Author Organization [facility] Care Team Providers Name Role Phone Unavailable Unavailable Unavailable Problems Condition Condition Condition Status Onset Resolution Last Treating Comments Name Details Category Date Date Treatment Clinician Date Pain frequent Pain Mgmt Active 2018-10 Shadia pain 11-16 [place] 10:25: [id number] 00 Respiratory dyspnea Respirator Active 2018-10 Shadia present y 11-16 [place] 10:25: [id number] 00 Respiratory CPAP Respirator Active 2018-10 Shadia treatments y 11-16 [place] in home 10:25: [id number] 00 Endo/Earl anti-coagul Endo/Earl Active 2018-10 Shadia ation 11-16 [place] therapy 10:25: [id number] 00 Integument surgical Integument Active 2018-10 Shadia wound 11-16 [place] present 10:25: [id number] 00 Integument skin Integument Active 2018-10 Shadia integrity 11-16 [place] risk 10:25: [id number] 00 Nutrition nutritional Nutrition Active 2018-10 Shadia restriction 11-16 [place] s 10:25: [id number] 00 Elimination urinary Eliminatio Active 2018-10 Shadia incontinenc n 11-16 [place] e 10:25: [id number] 00 Neuro confusion Neuro/Emot Active 2018-10 Shadia present ion 11-16 [place] 10:25: [id number] 00 Activity ADL Activity Active 2018-10 Shadia assistance 11-16 [place] required 10:25: [id number] 00 Activity self-care Activity Active 2018-10 Shadia deficit 11-16 [place] 10:25: [id number] 00 Safety structural Safety Active 2018-10 Shadia barriers 11-16 [place] present 10:25: [id number] 00 Safety fall risk Safety Active 2018-10 Shadia factor 11-16 [place] present 10:25: [id number] 00 Safety risk for Safety Active 2018-10 Shadia hospitaliza 11-16 [place] tion 10:25: [id number] 00 Medication oral med Meds Active 2018-10 Shadia assistance 11-16 [place] M required 10:25: [id number] 00 Medication knowledge/s Meds Active 2018-10 Shadia kill 11-16 [place] M deficit: pt 10:25: [id number] 00 Musculoskel transfer Musculoske Active 2018-10 Shadia etal assistance letal 11-16 [place] M required 10:25: [id number] 00 Musculoskel requires Musculoske Active 2018-10 Shadia etal human letal 11-16 [place] M assist to 10:25: [id number] leave home 00 Safety can be left Safety Active 2018-10 Fabian alone for 11-16 [place] only short 11:45: [id number] periods 00 ROM ROM PT: ROM Active 2018-10 Fabian deficit: LE 11-16 [place] 11:45: [id number] 00 ROM knowledge/s PT: ROM Active 2018-10 Fabian kill 11-16 Kobziewicz deficit LE: 11:45: [id number] pt 00 Strength/To knowledge/s PT: Active 2018-10 Fabian ne/Motor kill Strength 11-16 [place]mine[place] Control deficit LE: 11:45: [id number] pt 00 Bed mobility/tr PT/OT: Bed Active 2018-10 Fabian Mobility/Tr ansfer Mobility/T 11-16 Kobminewicz ansfer device ransfer 11:45: [id number] present 00 Bed transfer PT/OT: Bed Active 2018-10 Fabian Mobility/Tr deficit: Mobility/T 11-16 Kobmine[place]z ansfer vehicle ransfer 11:45: [id number] 00 Bed knowledge/s PT/OT: Bed Active 2018-10 Fabian Mobility/Tr kill Mobility/T 11-16 Kobziewicz ansfer deficit: pt ransfer 11:45: [id number] 00 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/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/borough coordinator PT/OT: Active 2018-10 Fabian urance rdination Balance/En 11-16 Yoditziewicz deficit durance 11:45: [id number] 00 OT: Self self-care OT: Active 2018-10 Fabian Care deficit Self-Care 11-16 [place] 11:45: [id number] 00 OT: Self knowledge/s OT: Active 2018-10 Fabian Care kill Self-Care 11-16 Kobz[place] deficit: pt 11:45: [id number] 00 Gait/Locomo stair PT/OT: Active 2018-10 Fabian oakeson management Gait/Locom - Kobziewicz problems req otion 11:45: [id number] 00 Gait/Locomo gait PT/OT: Active 2018-10 Fabian tion assistive Gait/Locom - Kobziewicz problems device otion 11:45: [id number] present 00 Gait/Locomo knowledge/s PT/OT: Active 2018-10 Fabian tion kill Gait/Locom - Kobziewicz problems deficit: pt otion 11:45: [id number] 00 Gait/Locomo gait PT/OT: Active 2018-10 Fabian tion deficit Gait/Locom - Kobziewicz problems otion 11:45: [id number] 00 Allergies, Adverse Reactions, Alerts Allergy Name [...]
--- OUTSIDE RECORDS SUMMARY | 2019-11-02 12:44 | XMS REPORT ---
:1955 Author Organization [facility] Care Team Providers Name Role Phone Unavailable Unavailable Unavailable Problems Condition Condition Condition Status Onset Resolution Last Treating Comments Name Details Category Date Date Treatment Clinician Date Pain frequent Pain Mgmt Active 2018-10 Shadia pain 11-16 [place] 10:25: [id number] 00 Respiratory dyspnea Respirator Active 2018-10 Shadia present y 11-16 [place] 10:25: [id number] 00 Respiratory CPAP Respirator Active 2018-10 Shadia treatments y 11-16 [place] in home 10:25: [id number] 00 Endo/Earl anti-coagul Endo/Earl Active 2018-10 Shadia ation 11-16 [place] therapy 10:25: [id number] 00 Integument surgical Integument Active 2018-10 Shadia wound 11-16 [place] present 10:25: [id number] 00 Integument skin Integument Active 2018-10 Shadia integrity 11-16 [place] risk 10:25: [id number] 00 Nutrition nutritional Nutrition Active 2018-10 Shadia restriction 11-16 [place] s 10:25: [id number] 00 Elimination urinary Eliminatio Active 2018-10 Shadia incontinenc n 11-16 [place] e 10:25: [id number] 00 Neuro confusion Neuro/Emot Active 2018-10 Shadia present ion 11-16 [place] 10:25: [id number] 00 Activity ADL Activity Active 2018-10 Shadia assistance 11-16 [place] required 10:25: [id number] 00 Activity self-care Activity Active 2018-10 Shadia deficit 11-16 [place] 10:25: [id number] 00 Safety structural Safety Active 2018-10 Shadia barriers 11-16 [place] present 10:25: [id number] 00 Safety fall risk Safety Active 2018-10 Shadia factor 11-16 [place] present 10:25: [id number] 00 Safety risk for Safety Active 2018-10 Shadia hospitaliza 11-16 [place] tion 10:25: [id number] 00 Medication oral med Meds Active 2018-10 Shadia assistance 11-16 [place] required 10:25: [id number] 00 Medication knowledge/s Meds Active 2018-10 Shadia kill 11-16 [place] deficit: pt 10:25: [id number] 00 Musculoskel transfer Musculoske Active 2018-10 Shadia etal assistance letal 11-16 [place] required 10:25: [id number] 00 Musculoskel requires Musculoske Active 2018-10 Shadia etal human letal 11-16 [place] M assist to 10:25: [id number] leave home 00 Safety can be left Safety Active 2018-10 Fabian alone for 11-16 [place] only short 11:45: [id number] periods 00 ROM ROM PT: ROM Active 2018-10 Fabian deficit: LE 11-16 [place] 11:45: [id number] 00 ROM knowledge/s PT: ROM Active 2018-10 Fabian kill 11-16 [place] deficit LE: 11:45: [id number] pt 00 Strength/To knowledge/s PT: Active 2018-10 Fabian ne/Motor kill Strength 11-16 [place] Control deficit LE: 11:45: [id number] pt 00 Bed mobility/tr PT/OT: Bed Active 2018-10 Fabian Mobility/Tr ansfer Mobility/T 11-16 [place] ansfer device ransfer 11:45: [id number] present 00 Bed transfer PT/OT: Bed Active 2018-10 Fabian Mobility/Tr deficit: Mobility/T 11-16 [place] ansfer vehicle ransfer 11:45: [id number] 00 Bed knowledge/s PT/OT: Bed Active 2018-10 Fabian Mobility/Tr kill Mobility/T 11-16 Kobziewicz ansfer deficit: pt ransfer 11:45: [id number] 00 Balance/End balance/home health care coordinator PT/OT: Active 2018-10 Fabian urance rdination Balance/En 11-16 Yoditziewicz deficit durance 11:45: [id number] 00 OT: Self self-care OT: Active 2018-10 Fabian Care deficit Self-Care 11-16 [place] 11:45: [id number] 00 OT: Self knowledge/s OT: Active 2018-10 Fabian Care kill Self-Care 11-16 Kobz[place] deficit: pt 11:45: [id number] 00 Gait/Locomo stair PT/OT: Active 2018-10 Fabian tion management Gait/Locom 2- Kobziewicz problems req otion 11:45: [id number] 00 Gait/Locomo gait PT/OT: Active 2018-10 Fabian tion assistive Gait/Locom 2- Kobziewicz problems device otion 11:45: [id number] present 00 Gait/Locomo knowledge/s PT/OT: Active 2018-10 Fabian tion kill Gait/Locom 2- Kobziewicz problems deficit: pt otion 11:45: [id number] 00 Gait/Locomo gait PT/OT: Active 2018-10 Fabian tion deficit Gait/Locom - Kobziewicz problems otion 11:45: [id number] 00 Allergies, Adverse Reactions, Alerts Allergy Name [...] Medications For This For This Patient Patient Vital Signs Vital Name Observation Time Observation [...]
[2019-11-02 13:16] VITALS: BP 110/68
--- NOTE | 2019-11-02 13:22 | UC ---
FLU HPI - HPI Summary HPI Summary: 64 yo female presents with flu-like symptoms. She tells me that her son was recently dx'd with the flu. On 10/31 pt started to have a mild dry cough and sneezing. Last night she felt body aches and took one dose of son's tamiflu. She has not been taking anything OTC for her symptoms. Denies fever, SOB, chest pain, abdominal pain, n/v/v, dysuria. Had a knee replacement about a month ago - states doing well with this - History of Current Complaint Chief Complaint: UCGeneralIllness Stated Complaint: CHEST CONGESTION, AND COUGH Time Seen by Provider: 11/02/19 13:22 Hx Obtained From: Patient Onset/Duration: Sudden Onset Severity Currently: Mild Severity Initially: Mild Pain Intensity: 1 Pain Scale Used: 0-10 Numeric - Allergy/Home Medications Allergies/Adverse Reactions: Allergies Allergy/AdvReac Type Severity Reaction Status Date / Time gluten Allergy Severe fatigue, Verified 11/02/19 13:09 flu like sx, rashes hydrocodone Allergy Severe Itching Verified 11/02/19 13:09 hydromorphone Allergy Severe Itching Verified 11/02/19 13:09 alcohol AdvReac Intermediate GI Upset Verified 11/02/19 13:09 casein AdvReac Intermediate GI Upset Verified 11/02/19 13:09 egg AdvReac Intermediate GI Upset Verified 11/02/19 13:09 soy AdvReac Intermediate GI Upset Verified 11/02/19 13:09 CORN OIL AdvReac Intermediate GI Upset Uncoded 11/02/19 13:09 dairy AdvReac Intermediate GI upsets Uncoded 11/02/19 13:09 peanuts AdvReac Intermediate GI Upset Uncoded 11/02/19 13:09 peppers AdvReac Intermediate GI Upset Uncoded 11/02/19 13:09 sugar AdvReac Intermediate GI Upset Uncoded 11/02/19 13:09 Home Medications: Home Medications D-Methorphan/PE/Acetaminophen [Theraflu Expressmax Sever 10-5-325 mg] 1 tab PO ONCE 11/02/19 [History Confirmed 11/02/19] PMH/Surg Hx/FS Hx/Imm Hx - Additional Past Medical History Additional PMH: None - Surgical History Surgical History: Yes Surgery Procedure, Year, and Place: ORIF RIGHT FEMUR FX W/ RODDING 1974;. REMOVAL OF JOCY 1975;. PARATHRYOIDECTOMY 1977;. RIGHT KNEE SURGERY X3 (, ARTHROSCOPY 1999 AND TIBIAL OSTEOTOMY FOR ALIGNMENT CORRECTION) (IMPLANTS);. PARITAL HYSTERECTOMY (BILAT OVARIES REMAINING);. CSP DISCECTOMY 2007;FUSION. RIGHT FOOT NEUROMA REMOVAL;. CHOLECYSTECTOMY;. PICC LINE - RT ARM;. REMOVAL OF PICC LINE;. UTERINE EMBOLIZATION;. BILATERAL CATARACTS;. R Total Knee 2018. Hardward removal Jun 2019 - Family History Known Family History: Positive: None - Social History Lives: With Family Alcohol Use: Weekly Alcohol Amount: 3 DRINKS Substance Use Type: None Smoking Status (MU): Never Smoked Tobacco Have You Smoked in the Last Year: No Review of Systems All Other Systems Reviewed And Are Negative: No Constitutional: Positive: Fatigue Skin: Positive: Negative Eyes: Positive: Negative ENT: Positive: Negative Respiratory: Positive: Cough Cardiovascular: Positive: Negative Gastrointestinal: Positive: Negative Neurovascular: Positive: Negative Neurological: Positive: Negative Psychological: Positive: Negative Physical Exam - Summary Physical Exam Summary: GENERAL: NAD. WDWN. No pain distress. SKIN: No rashes, sores, lesions, or open wounds. HEENT: Head: AT/NC Eyes: EOM intact. Conjunctiva clear without inflammation or discharge. Ears: Hearing grossly normal. TMs intact, no bulging, erythema, or edema. Nose: Nasal mucosa pink and moist. NTTP maxillary and frontal sinus. Throat: Posterior oropharynx without exudates, erythema, or tonsillar enlargement. Uvula midline. NECK: Supple. Nontender. No lymphadenopathy. CHEST: CTAB. No r/r/w. No accessory muscle use. Breathing comfortably and in no distress. CV: RRR. Pulses intact. Cap refill <2seconds NEURO: Alert. PSYCH: Age appropriate behavior. Triage Information Reviewed: Yes Vital Signs: Initial Vital Signs Temp 99.9 F 11/02/19 13:11 Pulse 67 11/02/19 13:11 Resp 16 11/02/19 13:11 BP 110/68 11/02/19 13:11 Pulse Ox 97 11/02/19 13:11 Laboratory Tests 11/02/19 13:32 Influenza A (Rapid) Negative Influenza B (Rapid) Negative Vital Signs Reviewed: Yes Flu Course/Dx - Course Course Of Treatment: Suspect viral illness vs influenza. Pt prefers to be on tamiflu at this time - given negative flu test, will rx for post-exposure tamiflu dosing. - Differential Dx/Diagnosis Provider Diagnosis: Exposure to the flu Discharge ED - Sign-Out/Discharge Documenting (check all that apply): Patient Departure All imaging exams completed and their final reports reviewed: No Studies - Discharge Plan Condition: Stable Disposition: HOME Prescriptions: Oseltamivir CAP* [Tamiflu CAP*] 75 mg PO DAILY #7 cap Patient Education Materials: Influenza (ED) Referrals: Jonnie Burrell MD [Primary Care Provider] - Additional Instructions: YOUR FLU TEST WAS NEGATIVE TODAY, BUT YOU ARE BEING TREATED WITH TAMIFLU BASED ON YOUR EXPOSURE Most people with the flu recover within one to two weeks without treatment. However, serious complications of the flu can occur. Go to the ER immediately if you: -- You feel short of breath or have trouble breathing -- You have pain or pressure in your chest or stomach -- You have signs of being dehydrated, such as dizziness when standing or not passing urine -- You feel confused -- You cannot stop vomiting or you cannot drink enough fluids There are several groups of people who are at increased risk for flu complications. These include women, young children (<5 years of age and especially <2 years of age), people older than 65 years of age, and people with certain diseases such as chronic lung disease (such as asthma), heart disease, diabetes, immunosuppressing conditions (such as HIV infection or transplantation), and some other diseases. Treat symptoms Treating the symptoms of influenza can help you to feel better but will not make the flu go away faster. -- Rest until the flu is fully resolved, especially if the illness has been severe. -- Fluids Drink enough fluids so that you do not become dehydrated. One way to hand candy dipper if you are drinking enough is to look at the color of your urine. Normally, urine should be light yellow to nearly colorless. If you are drinking enough, you should pass urine every three to five hours. -- Acetaminophen (sample brand name: Tylenol) can relieve fever, headache, and muscle aches. Aspirin and medicines that include aspirin (eg, bismuth subsalicylate [sample brand name: Pepto-Bismol]) are not recommended for children under 18 because aspirin can lead to a serious disease called Anayeli syndrome. -- Cough medicines are not usually helpful; cough usually resolves without treatment. We do not recommend cough or cold medicine for children under age 6 years. Antiviral treatment Antiviral medicines can be used to treat or prevent influenza. When used as a treatment, the medicine does not eliminate flu symptoms, although it can reduce the severity and duration of symptoms by about one day. Not every person with influenza needs an antiviral medicine, but some people do; the decision is based upon several factors. If you are severely ill and/or have risk factors for developing complications of influenza, you will need an antiviral agent. People who are only mildly ill and have no risk factors for complications usually do not need to be treated with antiviral medication. - Billing Disposition and Condition Condition: STABLE Disposition: Home
[2019-11-02 13:44] LABS: Influenza A Molecular NEGATIVE (Negative); Influenza B Molecular NEGATIVE (Negative)
== END 2019-11-02 14:03 | disposition home or self-care (01) ==
LOC: UCEAST 12:37
DX: R05 Cough (principal); R06.7 Sneezing; R52 Pain, unspecified; Z20.828 Contact with and (suspected) exposure to other viral communicable diseases; Z91.018 Allergy to other foods; Z88.5 Allergy status to narcotic agent; Z91.09 Other allergy status, other than to drugs and biological substances; Z91.011 Allergy to milk products; Z91.010 Allergy to peanuts
CPT/HCPCS: 99212; G0463